=== PATIENT | female | born 1990 | race Caucasian/White ===

== ENCOUNTER 2018-03-15 15:29 | Inpatient (IN) ==
--- OUTSIDE RECORDS SUMMARY | 2018-03-15 15:50 | External Medical Summary | Continuity of Care Document ---
:1990 Author Organization [facility] Address [address] [place], [place] [id number] Phone Allergies, Adverse Reactions, Alerts Substance Reaction Severity Status No Known Drug Allergies Unknown Active Medications Medication Instructions Dosage Effective Dates Status Comments (start - stop) Blood Glucose test 1 by - Active to go with Test strips Injection route Nipro Santiago QID (fasting and 2 Test--ICD 10: hours O24.410 postprandial) Lancets,Ultra testing QID - Active to go with Thin 26 gauge Nipro Santiago Test--ICD 10: O24.410 Blood Glucose check by - Active Nipro Santiago Monitoring kit Misc.(Non-Drug; Test--ICD 10: Combo Route) route O24.410 blood sugar QID, fasting and 2 hours after each meal Plus take 1 tablet by Not Available - Active (calcium oral route every carbonate) 27 mg day iron-1 mg tablet Aspir-81 81 mg take 1 tablet by 81 MG - Active tablet,delayed ORAL route every release day Problems Condition Effective Dates (start - stop) Clinical Status Morbid (severe) obesity due to excess calories Nicotine dependence, cigarettes, uncomplicated state, incidental Body mass index (BMI) 40.0-44.9, adult Supervision of other high risk - pregnancies, second trimester Abnormal glucose complicating - 17 weeks gestation of - Polycystic ovarian syndrome Polycystic ovarian syndrome Morbid (severe) obesity due to excess calories Pure hyperglyceridemia Menorrhagia Body mass index (BMI) 40.0-44.9, adult Polycystic ovarian syndrome - Menorrhagia - Body mass index (BMI) 40.0-44.9, adult - Morbid (severe) obesity due to excess calories Nicotine dependence, cigarettes, uncomplicated Menorrhagia Female infertility associated with anovulation Galactorrhea Body mass index (BMI) 40.0-44.9, adult Morbid (severe) obesity due to excess - calories Supervision of other high risk - pregnancies, second trimester Abnormal glucose complicating - 26 weeks gestation of - Morbid (severe) obesity due to excess calories Encounter for surveillance of contraceptive pills Body mass index (BMI) 40.0-44.9, adult Nicotine dependence, cigarettes, uncomplicated Pap Smear Screening, Cervix Encounter for removal of intrauterine - contraceptive device Encounter for removal of intrauterine contraceptive device [facility] and advice on procreation Supervision of other high risk - pregnancies, first trimester Previous Low Transverse - Pap Smear Screening, Cervix - 11 weeks gestation of - Supervision of other high risk - pregnancies, first trimester Previous Low Transverse - 13 weeks gestation of - Supervision of other high risk - pregnancies, first trimester Less than 8 weeks gestation of - Supervision of other high risk - pregnancies, first trimester Previous Low Transverse - 13 weeks gestation of - Gestational diabetes mellitus in - , diet controlled Previous Low Transverse - 28 weeks gestation of - Previous Low Transverse - Maternal care for excess growth, - second tri, unsp 19 weeks gestation of - Previous Low Transverse - Obesity complicating , second - trimester 19 weeks gestation of - Previous Low Transverse - Abnormal glucose complicating - 23 weeks gestation of - Asthma Active Kidney Stones Active Procedures Procedure Date Unknown Results Test Name Date and Time Measure Units Reference Range Abnormal Flag Comments Unknown Advance Directives Directive Yes / No Effective Date File Name Unknown Encounters Encounter Practice Location Reason(s) Diagnoses Date Provider Care Team Description For Visit Members Kian [place] Gestational Apr-0 Hoskins Referring In Womens diabetes mellitus 5-201 Cathie. Provider: Vishnu HINTON, in , 8 700 Cathie Hoskins PO Box diet Medical K, 700 1522, controlledPreviou [facility], Low Transverse , [facility] Dr MAYO, [id number] weeks 120, Jorge 120, , gestation of [place], [place], GA[place], tel: [phone]. , [place]. tel: tel: [phone] Kian [place] Apr-0 Hoskins In Womens 4-201 Cathie. Vishnu HINTON, 8 700 [address], [place] [address] Michael, [facility] GAEL, 120, , [facility] [place], tel: [phone] , [place]. tel: [phone] Kian [place] Mar-2 Hoskins In Womens 3-201 Cathie. Vishnu HINTON, 8 700 [address], [place] [address] Michael, [facility] [place], 120, [id number], [facility] [place], tel: [phone] , [place]. tel: [phone] Kian [place] Morbid (severe) Mar-2 Hoskins Referring In Womens obesity due to 2-201 Cathie. Provider: Vishnu HINTON, excess 8 700 Cathie Hoskins PO Box caloriesSupervisi Medical K, 700 1522, on of other [facility] [place], risk pregnancies, , [facility] Dr MAYO, second 120, Jorge 120, , trimesterAbnormal Ge[place]any [place], glucose [place], [place], tel:+ complicating [phone]. weeks , [place]. tel: gestation of tel: [phone] Kian [place] Previous Low Mar-0 Hoskins Referring In Womens Transverse 1-201 Cathie. Provider: Health JAMAAL, C-SectionAbnormal 8 700 Cathie Hoskins PO Box glucose Medical K, 700 1522, complicating [facility] [place], [id number] weeks , [facility] Dr MYAO, gestation of 120, Jorge 120, [id number], [place], [place], [place], tel: [phone]. , [place]. tel: tel: [phone] Kian [place] Previous Low Feb-0 Hoskins Referring In Womens Transverse - Cathie. Provider: Vishnu HINTON, C-SectionObesity 8 700 Cathie Hoskins PO Box complicating Medical K, 700 1522, , second [facility], [id number] weeks , [facility] Dr MAYO, gestation of 120, Jorge 120, , [place], [place], [place], tel: [phone]. , [place]. tel: tel: [phone] Kian [place] Previous Low Feb-0 Hoskins Referring In Womens Ultrasound Transverse Cathie. Provider: Vishnu HINTON, C-SectionMaternal 8 700 Cathie Hoskins PO Box care for excess Medical K, 700 1522, growth, [facility], second tri, , [facility] Dr MAYO, unsp19 weeks 120, Jorge 120, , gestation of [place], [place], [place], tel: [phone]. , [place]. tel: tel: [phone] Kian [place] Supervision of Hoskins Referring In Womens other high risk - Cathie. Provider: Health JAMAAL, pregnancies, 8 700 Cathie Hoskins PO Box second Medical K, 700 1522, trimesterAbnormal [facility], nellie [place], [facility] Dr MAYO, complicating 120, Jorge 120, [id number], [id number] weeks [place], [place] gestation of [place], tel: [phone]. , [place]. tel: tel: [phone] Kian [place] Supervision of Dec-2 Hoskins Referring In Womens Ultrasound other high risk - Cathie. Provider: Health PA, pregnancies, 7 700 Cathie Hoskins PO Box first Medical , 700 1522, trimesterPrevious Center [facility], Low Transverse , [facility] Dr MAYO, [id number] weeks 120, Jorge 120, [id number], gestation of Geov[place], [place], [place], tel: [phone]. , [place]. tel: tel: [phone] Kian [place] Supervision of Dec-2 Hoskins Referring In Womens other high risk - Cathie. Provider: Health PA, pregnancies, 7 700 Cathie Hoskins PO Box first Medical , 152, trimesterPrevious [facility], Low Transverse , [facility] Dr MAYO, [id number] weeks 120, Jorge 120, , gestation of [place], [place], [place], tel: [phone]. , [place]. tel: tel: [phone] Kian [place] Supervision of Dec-0 Hoskins Referring In Womens other high risk Cathie. Provider: Health PA, pregnancies, 7 700 Cathie Hoskins PO Box first Medical , 700 1522, [facility], Low Transverse , [facility] Dr MAYO, C-SectionPap 120, Jorge 120, [id number], Smear Screening, [place], [id number] weeks [place] MAYO, tel: gestation of [phone]. , [place]. tel: tel: [phone] Kian [place] Supervision of Nov-0 Hoskins Referring In Womens other high risk - Cathie. Provider: Health [place], pregnancies, 7 700 Cathie Hoskins PO Box first Medical , 700 1522, trimesterLess Center [facility], than 8 weeks , [facility] Dr MAYO, gestation of 120, Jorge 120, [id number], Geov[place], [place] MAYO, tel:[phone]. , [place]. tel: tel: [phone] [facility] Morbid (severe) Oct- Hoskins Referring In Womens obesity due to 9- Cathie. Provider: Health JAMAAL, excess 7 700 Cathie Hoskins PO Box caloriesNicotine Medical , 700 152, dependence, [facility], cigarettes, , [facility] Dr MAYO, uncomplicatedPreg 120, Jorge 120, , [place], [place], [place] incidentalBody [place] MAYO, tel: mass index (BMI) [phone]. 40.0-44.9, adult , [place]. tel: tel: [phone] [facility] Morbid (severe) Bryan-2 Hoskins Referring In Womens obesity due to - Cathie. Provider: Vishnu HINTON, excess 7 700 Cathie Hoskins PO Box caloriesEncounter [facility], 700 152, for surveillance [facility], of contraceptive , [facility] Dr MAYO, pillsBody mass 120, Jorge 120, , index (BMI) [place], [place] 40.0-44.9, adult [place] MAYO, tel:[phone]. , [place]. tel: tel: [phone] [facility] Polycystic Apr-2 Hoskins Referring In Womens ovarian 6-201 Cathie. Provider: Vishnu HINTON, syndromeMorbid 700 Cathie Hoskins PO Box (severe) obesity Medical , 700 152, due to excess [facility], caloriesPure , [facility] Dr MAYO, hyperglyceridemia 120, Jorge 120, , MenorrhagiaBody [place], [place] mass index (BMI) [place] MAYO, tel: 40.0-44.9, adult [phone]. , [place]. tel: tel: [phone] [facility] Polycystic Apr-2 Hoskins Referring In Womens Ultrasound ovarian 6-201 Cathie. Provider: Vishnu HINTON, syndromeMenorrhag 7 700 Cathie Hoskins PO Box iaBody mass index Medical , 700 1522, (BMI) 40.0-44.9, [facility], adult Dr, [facility] Dr MAYO, 120, Jorge 120, , Geov[place], [facility] [place], [place], tel: [phone]. , [place]. tel: tel: [phone] Kian [place] Polycystic Apr-0 Hoskins In Womens ovarian syndrome 2-201 Cathie. Health [facility], 7 700 PO [address] Medical [address], [place], , Jorge [place], 120, [id number], [place], tel: [phone] , [place]. tel: [phone] Kian [place] Morbid (severe) Mar-3 Hoskins Referring In Womens obesity due to 0-201 Cathie. Provider: Health [place], excess 7 700 Cathie Hoskins PO Box caloriesNicotine Medical , 700 1522, dependence, [facility], , [facility] Dr MAYO, uncomplicatedMeno 120, Jorge 120, , rrhagiaFemale [place], infertility [place], [place], tel: associated with [phone]. anovulationGalact , [place]. tel: orrheaBody mass tel: [phone] index (BMI) [id number] 40.0-44.9, adult [facility] Nicotine Oct- Hoskins Referring In Womens dependence, 5-201 Cathie. Provider: Health JAMAAL, cigarettes, 6 700 Cathie Hoskins PO Box uncomplicatedPap Medical , 700 1522, Smear Screening, [facility], CervixEncounter , [facility] Dr MAYO, for removal of 120, Jorge 120, [id number], intrauterine [place], contraceptive [place], [place], tel: deviceEncounter [phone]. for removal of , [place]. tel: intrauterine tel: [phone] contraceptive [phone] deviceEncounter for oth general cnsl and advice on procreation [facility] Nov-2 Yadiel Referring In Womens Ultrasound 8-201 Roge. Provider: Health JAMAAL, [address], 791 0542, [facility] [place], [id number] [place], [id number], , [place]. [place], [address]. [place] tel: tel: tel: [phone] Family History Family Member Diagnosis Age At Onset No family history of Stroke No family history of Lung Disease No family history of Thyroid Disorder No family history of Epilepsy No family history of Pulmonary Embolism Paternal Grandmother Breast Cancer No family history of Hypertension No family history of Colon Cancer No family history of Ovarian Cancer No family history of Cardiovascular Disease Mother Diabetes No family history of Uterine Cancer Maternal Grandmother Breast Cancer No family history of Osteoporosis No family history of Kidney Disease No family history of Venous Thrombosis Immunizations Vaccine Date Status Comments Influenza, injectable, completed Source: New Immunization Record quadrivalent, preservative free, 3 yrs or older Payers Payer name Insurance type Covered democrat ID Authorization(s) [employer] [place] [employer] - [place] [id number] [employer] [place] [id number] Social History Type Description Quantity Date Captured Unknown Vital Signs Date / Height Weight BMI Pulse Blood Temperature Respiratory Body Head BMI Time: Rate Pressure Rate Surface Circumference percentile Area Unknown Chief Complaint And Reason For Visit Unknown Chief Complaint And Reason For Visit Reason For Referral Reason For Referral Unknown Plan Of Care Date Type Action Status Goal Tobacco cessation counseling completed Goal Tobacco cessation counseling completed Goal Lifestyle education regarding completed diet Goal Lifestyle education regarding completed diet Goal Lifestyle education regarding completed diet Goal Tobacco cessation counseling completed Goal Tobacco cessation counseling completed Appointment Gwendolyn Woods BOOKED Appointment Gwendolyn Woods BOOKED Appointment Gwendolyn Woods [facility]PT[facility] BOOKED Future Order: Radiology Order Transvaginal Pelvic Ultrasound Ordered ([id number]) Future Order: Lab Order Pap Smear With HPV Reflex If Ordered ASCUS ([id number]), Collected on: Future Order: Radiology Order Nuchal Translucency ([id number]) Ordered Future Order: Radiology Order Complete OB Ultrasound > 14 Ordered Weeks ([id number]) Date Type Problem Goal Intervention Status Start Date Unknown. History Of Present Illness Encounter Date Complaint History Of Present Illness This patient has no known history of present illness Functional Status Encounter Date Functional Assessment Cognitive Assessment Unknown Medications Administered Medication Instructions Dosage Effective Dates (start - stop) Status Comments Drug Treatment Unknown Instructions Date Instruction Additional Information anticipated course of care nutrition and weight gain counseling, special diet toxoplasmosis precautions (cats / raw meat) sexual activity exercise indications for ultrasound influenza vaccine environmental / work hazards travel tobacco (ask, advise, assess, assist and arrange) use of any medications (including supplements, vitamins, herbs, OTC drugs) smoking counseling domestic violence seat belt use childbirth classes / hospital facilities hospital registration genetic testing HIV and other routine tests risk factors identified by history Lifestyle education regarding diet Related to Body mass index 40.0-44.9 Giving encouragement to exercise Related to Body mass index 40.0-44.9 Giving encouragement to exercise Related to Body mass index 40.0-44.9 Lifestyle education regarding diet Related to Body mass index 40.0-44.9 Lifestyle education regarding diet Related to Body mass index 40.0-44.9 Giving encouragement to exercise Related to Body mass index 40.0-44.9
--- OUTSIDE RECORDS SUMMARY | 2018-03-15 15:50 | External Medical Summary | Continuity of Care Document ---
:1990 Author Organization [facility] Address [address] [place], [place] [id number] Phone Allergies, Adverse Reactions, Alerts Substance Reaction Severity Status No Known Drug Allergies Unknown Active Medications Medication Instructions Dosage Effective Dates Status Comments (start - stop) Blood Glucose test 1 by - Active to go with Test strips Injection route Nipro Santiago QID (fasting and 2 Test--ICD 10: hours O24.410 postprandial) Lancets,Ultra testing QID - Active to go with Thin 26 gauge Nipro Santigao Test--ICD 10: O24.410 Blood Glucose check by [...] removal of intrauterine contraceptive device Encounter for [facility] general cnsl and advice on procreation Supervision [...] Supervision of other high risk - pregnancies, third trimester Gestational diabetes mellitus in - , diet controlled Previous Low Transverse - 30 weeks gestation of - Gestational diabetes mellitus in - , diet controlled Previous Low Transverse - 28 weeks gestation of - Gestational diabetes mellitus in - , diet controlled Previous Low Transverse - Obesity complicating , third - trimester 30 weeks gestation of - Previous Low Transverse [...] Team Description For Visit Members Kian [place] Supervision of Apr-1 Hoskins Referring In Womens other high risk 8- Cathie. Provider: Vishnu HINTON, pregnancies, 8 700 Cathie Hoskins [address] Box [facility] Medical , 700 1522, [facility] , [facility] Dr MAYO, mellitus in 120, Jorge 120, , , diet Geovany [place], [place] controlledPreviou GAEL, GAEL, tel: s Low Transverse [phone]. C-Dcnoiem07 weeks , [place]. tel: gestation of tel: [phone] Kian [place] Gestational Apr-1 Hoskins Referring In Womens Ultrasound diabetes mellitus 8- Cathie. Provider: Vishnu HINTON, in , 8 700 Cathie Hoskins PO Box [facility] , 700 1522, [facility], [facility] , [facility] Dr MAYO, C-SectionObesity 120, Jorge 120, , complicating Geovany [place], [place] , third GAEL MAYO, tel:2 weeks [phone]. gestation of , [place]. tel: tel: [phone] Kian [place] Gestational Apr-0 Hoskins Referring In Womens diabetes mellitus 5-201 Cathie. Provider: Vishnu HINTON, in , 8 700 Cathie Hoskins PO Box [employer], 700 1522, [facility], s Low Transverse , [facility] Dr MAYO, C-Egmzgru11 weeks 120, Jorge 120, , gestation of Geovany [place], [place], [place], tel: [phone]. , [place]. tel: tel: [phone] [facility] Apr-0 Hoskins In Womens 4-201 Cathie. Vishnu HINTON, 8 700 [address] Medical [address], [place], , [facility], 120, , [place], tel: [phone] , [place]. tel: [phone] [facility] Morbid (severe) Mar-2 Hoskins Referring In Womens obesity due to 2-201 Cathie. Provider: Vishnu HINTON, excess 8 700 Cathie Hoskins PO Box [facility] Medical K, 700 1522, on of other [facility], risk pregnancies, , [facility] Dr MAYO, second 120, Jorge 120, , trimesterAbnormal [place], [place] glucose [place], [place], tel: complicating [phone]. [id number] weeks , [place]. tel: gestation of tel: [phone] [facility] Previous Low Mar-0 Hoskins Referring In Womens Transverse 1-201 Cathie. Provider: Vishnu HINTON, C-SectionAbnormal 8 700 Cathie Hoskins PO Box glucose Medical , 700 1522, complicating [facility] [place], [id number] weeks , [facility] Dr MAYO, gestation of 120, Jorge 120, , [place], [place], tel: [phone]. , [place]. tel: tel: [phone] [facility] Previous Low Feb-0 Hoskins Referring In Womens Transverse 1-201 Cathie. Provider: Vishnu HINTON, C-SectionObesity 8 700 Cathie Hoskins PO Box complicating Medical , 700 1522, , second Center [facility], [email or web address] weeks , [facility] Dr MAYO, gestation of 120, Jorge 120, [id number], Geovany [place], [place] GAEL GAEL, tel: [phone]. , [place]. tel: tel: [phone] Kian [place] Previous Low Feb-0 Hoskins Referring In Womens Ultrasound Transverse - Cathie. Provider: Vishnu HINTON, C-SectionMaternal 8 700 Cathie Hoskins PO Box care for excess Medical K, 700 1522, growth, [facility] tri, , [facility] Dr MAYO, unsp19 weeks 120, Jorge 120, [id number], gestation of Geovany [place], [place] GAEL MAYO, tel: [phone]. , [place]. tel: tel: [phone] Kian [place] Supervision of Hoskins Referring In Womens other high risk 8- Cathie. Provider: Health JAMAAL, pregnancies, 8 700 Cathie Hoskins PO Box second Medical , 700 1522, trimesterAbnormal [facility], glucose Dr, [facility] Dr MAYO, complicating 120, Jorge 120, [id number], [id number] weeks Geovany [place], [place] gestation of GAEL GAEL, tel: [phone]. , [place]. tel: tel: [phone] Kian [place] Supervision of Sep-2 Hoskins Referring In Womens Ultrasound other high risk - Cathie. Provider: Health JAMAAL, pregnancies, 7 700 Cathie Hoskins PO Box first Medical K, 700 1522, trimesterPrevious [facility], Low Transverse Dr, [facility] Dr MAYO, C-Ihfzlbj46 weeks 120, Jorge 120, [id number], gestation of Geovany [place], [place] MAYO, tel: [phone]. , [place]. tel: tel: [phone] Kian [place] Supervision of Sep-2 Hoskins Referring In Womens other high risk -201 Cathie. Provider: Health JAMAAL, pregnancies, 7 700 Cathie Hoskins PO Box first Medical K, 700 1522, [facility]Previous [facility], Low Transverse , [facility] Dr MAYO, C-Trqbnar41 weeks 120, Jorge 120, , gestation of Geovany [place], GAEL, GAEL, tel:[phone]. , [place]. tel: tel: [phone] Kian [place] Supervision of Dec-0 Hoskins Referring In Womens other high risk Cathie. Provider: Health PA, pregnancies, 7 700 Cathie Hoskins PO Box first [facility], 700 152, trimesterPrevious [facility] [place], Low Transverse , [facility] Dr MAYO, C-SectionPap 120, Jorge 120, , Smear Screening, Geovany [place], Tctngn76 weeks GAEL MAYO, tel: gestation of [phone]. , [place]. tel: tel: [phone] Kian [place] Supervision of Nov-0 Hoskins Referring In Womens other high risk Cathie. Provider: Health PA, pregnancies, 7 700 Cathie Hoskins PO Box first Medical , 700 1522, trimesterLess [facility] [place], than 8 weeks , [facility] Dr MAYO, gestation of 120, Jorge 120, , Geovany [place], GAEL MAYO, tel: [phone]. , [place]. tel: tel: [phone] Kian [place] Morbid (severe) Jul- Hoskins Referring In Womens obesity due to Cathie. Provider: Health PA, excess 7 700 Cathie Hoskins PO Box caloriesNicotine Medical , 700 1522, dependence, [facility] [place], cigarettes, , [facility] Dr MAYO, uncomplicatedPreg 120, Jorge 120, , nant state, Geovany [place], incidentalBody GAEL MAYO, tel: mass index (BMI) [phone]. 40.0-44.9, adult , [place]. tel: tel: [phone] Kian [place] Morbid (severe) Bryan-2 Hoskins Referring In Womens obesity due to 6- Cathie. Provider: Health JAMAAL, excess 7 700 Cathie Hoskins PO Box caloriesEncounter [facility], 700 1521, for surveillance [facility] [place], of contraceptive , [facility] Dr MAYO, pillsBody mass 120, Jorge 120, [id number], index (BMI) [place], [place] 40.0-44.9, adult [place], [place], tel:+ [phone]. , [place]. tel: tel: [phone] [facility] Polycystic Apr-2 Hoskins Referring In Womens ovarian 6-201 Cathie. Provider: Health JAMAAL, syndromeMorbid 7 700 Cathie Hoskins PO Box (severe) obesity [facility], 700 152, due to excess [facility] Michael caloriesPure , [facility] Dr MAYO, hyperglyceridemia 120, Jorge 120, , MenorrhagiaBody Geovany [place], [place] mass index (BMI) GAEL, GAEL, tel: 40.0-44.9, adult [phone]. , [place]. tel: tel: [phone] Kian [place] Polycystic Apr-2 Hoskins Referring In Womens Ultrasound ovarian 6- Cathie. Provider: Vishnu HINTON, syndromeMenorrhag 7 700 Cathie Hoskins PO Box iaBody mass index [facility], 700 152, (BMI) 40.0-44.9, [place] Addy Rodriguez, adult , [facility] Dr MAYO, 120, Jorge 120, , [place], [place], tel: [phone]. , [place]. tel: tel: [phone] Kian [place] Polycystic Apr-0 Hoskins In Womens ovarian syndrome 2-201 Cathie. Health JAMAAL, 7 700 PO [address] Medical [address], [place] Dr Michael, [place], 120, [id number], [place], [place], tel:[phone] , [place]. tel: [phone] Kian [place] Morbid (severe) Mar-3 Hoskins Referring In Womens obesity due to 0-201 Cathie. Provider: Health PA, excess 7 700 Cathie Hoskins PO Box caloriesNicotine Medical K, 700 1522, dependence, [facility] [address] Dr, [facility] Dr MAYO, uncomplicatedMeno 120, Jorge 120, [id number], rrhagiaFemale Geovany [place], infertility [place], [place], tel: associated with [phone]. anovulationGalact , [place]. tel: orrheaBody mass tel: [phone] index (BMI) [id number] 40.0-44.9, adult [facility] Nicotine Oct- Hoskins Referring In Womens dependence, 5-201 Cathie. Provider: Vishnu HINTON, cigarettes, 6 700 Cathie Hoskins PO Box uncomplicatedPap Medical K, 700 1522, Smear Screening, [facility] Michael CervixEnctigre [place], [facility] Dr MAYO, for removal of 120, Jorge 120, [id number], intrauterine Geovany [place], contraceptive [place], [place], tel: deviceEncounter [phone]. for removal of , [place]. tel: intrauterine tel: [phone] contraceptive [phone] deviceEncounter for oth general cnsl and advice on procreation [facility] Referring In Womens Ultrasound 8-201 Roge. Provider: Health JAMAAL, [address] [place], 720 1522, [place], [place], [id number] Geovany, [id number], , . [place], [address]. [place] tel: tel: tel: [phone] Family History Family Member Diagnosis Age At [...] Authorization(s) [employer] - Medicaid [place] [id number] [employer] - Medicaid [place] [id number] Social History Type Description Quantity Date Captured [...] Appointment Gwendolyn Woods BOOKED Appointment Gwendolyn Woods [facility] [place], PPTL BOOKED Future Order: Radiology Order Transvaginal Pelvic Ultrasound Ordered ([id number]) Future Order: Lab Order Pap Smear With HPV Reflex If Ordered ASCUS ([id number]), Collected on: Future Order: Radiology Order Nuchal Translucency ([id number]) Ordered Future Order: Radiology Order Ultrasound OB Follow-up ([id number]) Ordered Future Order: Radiology Order Complete OB Ultrasound > 14 Ordered Weeks ([id number]) Date Type Problem Goal Intervention Status Start [...]
--- OUTSIDE RECORDS SUMMARY | 2018-03-15 15:51 | External Medical Summary | Continuity of Care Document ---
:1990 Author Organization [facility] Address [address] [place], [place] [id number] Phone Allergies, Adverse Reactions, Alerts Substance Reaction [...] Effective Dates (start - stop) Clinical Status Gestational diabetes mellitus in - , diet controlled Previous Low Transverse - Obesity complicating , third - trimester 30 weeks gestation of - Morbid (severe) obesity [...] removal of intrauterine contraceptive device En[facility] for [facility] general cnsl and advice on procreation Supervision [...] Active Kidney Stones Active Procedures Procedure Date Ultrasnd preg uterus, flwup/repeat Results Test Name Date and Time Measure Units Reference Range Abnormal Flag Comments Unknown Advance Directives Directive Yes / No Effective Date File Name Unknown Encounters Encounter Practice Location Reason(s) Diagnoses Date Provider Care Team Description For Visit Members Kian [place] Supervision of Jan- Hoskins Referring In Womens other high risk 8 Cathie. Provider: Vishnu HINTON, pregnancies, 8 700 Cathie Hoskins PO Box [facility] [place], 700 1522, trimesterGestatio [facility] diabetes , [facility] Dr MAYO, mellitus in 120, Jorge 120, , , diet Geovany [place], [place] controlledPreviou [place] MAYO, tel: s Low Transverse [phone]. C-Dflanrv10 weeks , [place]. tel: gestation of tel: [phone] Kian [place] Gestational Apr-1 Hoskins Referring In Womens Ultrasound diabetes mellitus 8- Cathie. Provider: Vishnu HINTON, in , 8 700 Cathie Hoskins PO Box [employer] [facility], 700 1522, controlledPreviou [facility], Low Transverse , [facility] Dr MAYO, C-SectionObesity 120, Jorge 120, [id number], complicating Geovany [place], [place] , third GAEL MAYO, tel: mllllbdac27 weeks [phone]. gestation of , [place]. tel: tel: [phone] Kian [place] Gestational Apr-0 Hoskins Referring In Womens diabetes mellitus 5-201 Cathie. Provider: Vishnu HINTON, in , 8 700 Cathie Hoskins PO Box [employer], 700 1522, controlledPreviou [facility], s Low Transverse , [facility] Dr MAYO, C-Bjdlevs64 weeks 120, Jorge 120, , gestation of [place]ov[place], [place], tel: [phone]. , [place]. tel: tel: [phone] [facility] Apr-0 Hoskins In Womens 4-201 Cathie. Vishnu HINTON, 8 700 PO [address] Medical [address], [place], , [facility] [place], 120, , [place], [place], tel: [phone] , [place]. tel: [phone] [facility] Morbid (severe) Mar-2 Hoskins Referring In Womens obesity due to 2-201 Cathie. Provider: Vishnu HINTON, excess 8 700 Cathie Hoskins PO Box caloriesSupervisi Medical , 700 1522, on of other [facility], risk pregnancies, , [facility] Dr MAYO, second 120, Jorge 120, , trimesterAbnormal Geovany [place], [place] glucose GAEL, GAEL, tel: complicating [phone]. [id number] weeks , [place]. tel: gestation of tel: [phone] [facility] Previous Low Mar-0 Hoskins Referring In Womens Transverse 1-201 Cathie. Provider: Vishnu HINTON, C-SectionAbnormal 8 700 Cathie Hoskins PO Box glucose Medical , 700 1522, complicating [facility], [id number] weeks , [facility] Dr MAYO, gestation of 120, Jorge 120, , [place], [place], [place], tel: [phone]. , [place]. tel: tel: [phone] [facility] Previous Low Feb-0 Hoskins Referring In Womens Transverse 1-201 Cathie. Provider: Vishnu HINTON, C-SectionObesity 8 700 Cathie Hoskins PO Box complicating Medical , 700 1522, , second [facility], [email or web address] weeks , [facility] Dr MAYO, gestation of 120, Jorge 120, [id number], Geovany [place], [place] GAEL MAYO, tel: [phone]. , [place]. tel: tel: [phone] Kian [place] Previous Low Feb-0 Hoskins Referring In Womens Ultrasound Transverse - Cathie. Provider: Health JAMAAL, C-SectionMaternal 8 700 Cathie Hoskins PO Box care for excess Medical K, 700 1522, growth, [facility], second tri, , [facility] Center Dr MAYO, unsp19 weeks 120, Jorge 120, [id number], gestation of Geovany [place], [place] GAEL MAYO, tel: [phone]. , [place]. tel: tel: [phone] Kian [place] Supervision of Hoskins Referring In Womens other high risk - Cathie. Provider: Health PA, pregnancies, 8 700 Cathie Hoskins PO Box second Medical K, 700 1522, trimesterAbnormal [facility], glucose Dr, [facility] Dr MAYO, complicating 120, Jorge 120, [id number], [id number] weeks Geovany [place], [place] gestation of GAEL MAYO, tel: [phone]. , [place]. tel: tel: [phone] Kian [place] Supervision of Sep-2 Hoskins Referring In Womens Ultrasound other high risk - Cathie. Provider: Health JAMAAL, pregnancies, 7 700 Cathie Hoskins PO Box first Medical K, 700 1522, trimesterPrevious [facility], Low Transverse Dr, [facility] Center Dr MAYO, C-Yvpwxfi78 weeks 120, Jorge 120, [id number], gestation of Geovany [place], [place] GAEL MAYO, tel: [phone]. , [place]. tel: tel: [phone] Kian [place] Supervision of Dec-2 Hoskins Referring In Womens other high risk -201 Cathie. Provider: Health JAMAAL, pregnancies, 7 700 Cathie Hoskins PO Box first Medical , 700 1522, trimesterPrevious [facility], Low Transverse , [facility] Dr MAYO, C-Gthezpa52 weeks 120, Jorge 120, , gestation of [place], GAEL, GAEL, tel: [phone]. , [place]. tel: tel: [phone] Kian [place] Supervision of Dec- Hoskins Referring In Womens other high risk Cathie. Provider: Health PA, pregnancies, 7 700 Cathie Hoskins PO Box first Medical , 700 1522, trimesterPrevious [facility], Low Transverse , [facility] Dr MAYO, C-SectionPap 120, Jorge 120, , Smear Screening, Geovany [place], Naeoqg31 weeks GAEL MAYO, tel: gestation of [phone]. , [place]. tel: tel: [phone] Kian [place] Supervision of Nov-0 Hoskins Referring In Womens other high risk Cathie. Provider: Health PA, pregnancies, 7 700 Cathie Hoskins PO Box first Medical , 700 1522, trimesterLess [facility], than [address], [facility] Dr MAYO, gestation of 120, Jorge 120, , Geovany [place], GAEL MAYO, tel: [phone]. , [place]. tel: tel: [phone] Kian [place] Morbid (severe) Hoskins Referring In Womens obesity due to Cathie. Provider: Health PA, excess 7 700 Cathie Hoskins PO Box caloriesNicotine Medical , 700 1522, dependence, [place] Addy Rodriguez, cigarettes, Dr, [facility] Center Dr MAYO, uncomplicatedPreg 120, Jorge 120, , [place] state, Geovany [place], incidentalBody GAEL MAYO, tel:2 mass index (BMI) [id number]. 40.0-44.9, adult , [place]. tel: tel: [phone] [facility] Morbid (severe) Bryan-2 Hoskins Referring In Womens obesity due to 6-201 Cathie. Provider: Health JAMAAL, excess 7 700 Cathie Hoskins PO Box [facility], 700 152, for surveillance [facility], of contraceptive , [facility] Dr MAYO, pillsBody mass 120, Jorge 120, [id number], index (BMI) Geovany [place], [place] 40.0-44.9, adult GAEL MAYO, tel:[phone]. , [place]. tel: tel: [phone] [facility] Polycystic Apr-2 Hoskins Referring In Womens ovarian 6-201 Cathie. Provider: Vishnu HINTON, syndromeMorbid 7 700 Cathie Hoskins PO Box (severe) obesity Medical , 700 152, due to excess [facility], caloriesPure , [facility] Dr MAYO, hyperglyceridemia 120, Jorge 120, , MenorrhagiaBody Geovany [place], [place] mass index (BMI) GAEL, GAEL, tel: 40.0-44.9, adult [phone]. , [place]. tel: tel: [phone] [facility] Polycystic Apr-2 Hoskins Referring In Womens Ultrasound ovarian 6-201 Cathie. Provider: Vishnu HINTON, syndromeMenorrhag 7 700 Cathie Hoskins PO Box iaBody mass index [facility], 700 152, (BMI) 40.0-44.9, [facility], adult , [facility] Dr MAYO, 120, Jorge 120, [id number], Geovany [place], [place], [place], tel: [phone]. , [place]. tel: tel: [phone] [facility] Polycystic Apr-0 Hoskins In Womens ovarian syndrome 2-201 Cathie. Health JAMAAL, 7 700 PO [address] Medical [address], [place], , Jorge MAYO, 120, [id number], [place], [place], tel:[phone] , [place]. tel: [phone] Kian [place] Morbid (severe) Mar-3 Hoskins Referring In Womens obesity due to 0-201 Cathie. Provider: Health PA, excess 7 700 Cathie Hoskins PO Box caloriesNicotine Medical K, 700 1522, dependence, [facility], cigarettes, , [facility] Dr MAYO, uncomplicatedMeno 120, Jorge 120, [id number], rrhagiaFemale Geovany [place], infertility [place], [place], tel: associated with [phone]. anovulationGalact , [place]. tel: orrheaBody mass tel: [phone] index (BMI) [id number] 40.0-44.9, adult [facility] Nicotine Patrick-2 Hoskins Referring In Womens dependence, 5-201 Cathie. Provider: Health JAMAAL, cigarettes, 6 700 Cathie Hoskins PO Box uncomplicatedPap Medical K, 700 1522, Smear Screening, [facility], CervixEncountcedric [place], [facility] Dr MAYO, for removal of 120, Jorge 120, [id number], intrauterine Geovany [place], contraceptive [place], [place], tel: deviceEncounter [phone]. for removal of , [place]. tel: intrauterine tel: [phone] contraceptive [phone] deviceEncounter for oth general cnsl and advice on procreation [facility] Nov- Desdemona Referring In Womens Ultrasound 8-201 Roge. Provider: Health JAMAAL, [address] [place], [address] 1522, [place], [place] , GAEL, [id number] Geovany, [id number], , [place], [address]. [place] tel: tel: tel: [phone] Family History Family Member Diagnosis Age At [...] older Payers Payer name Insurance type Covered alliance party ID Authorization(s) [employer] - [place] [id number] [employer] - Medicaid [place] [id number] Social History Type Description Quantity Date Captured [...] Tobacco cessation counseling completed Appointment Gwendolyn Woods [facility] C/S, PPTL BOOKED Future Order: Radiology Order Ultrasound OB Follow-up ([id number]) Ordered Future Order: Radiology Order Transvaginal Pelvic Ultrasound Ordered ([id number]) Future Order: Lab Order Pap Smear With HPV Reflex If Ordered ASCUS ([id number]), Collected on: Future Order: Radiology Order Nuchal Translucency ([id number]) Ordered Future Order: Radiology Order Complete OB Ultrasound > 14 Ordered Weeks ([id number]) Date Type Problem Goal Intervention Status Start [...]
--- OUTSIDE RECORDS SUMMARY | 2018-03-15 15:51 | External Medical Summary | Continuity of Care Document ---
:1990 Author Organization [facility] [facility] Address [address] [place], [place] [id number] Phone Allergies, Adverse Reactions, Alerts Substance Reaction [...] removal of intrauterine contraceptive device Encounter for [facility] general cnsl and advice [...] Box diet Medical K, 700 1522, controlledPreviou [facility] emerald Rodriguez Transverse , [facility] Dr MAYO, C-Miejxtb91 weeks 120, Jorge 120, , gestation of Geovany Leopold, GAEL, GAEL, tel:[phone]. , [place]. tel: tel: [phone] Kian [place] Apr-0 Hoskins In Womens 4-201 Cathie. Vishnu HINTON, 8 700 PO [address] Medical [address], [address] Michael, [facility] GAEL, 120, , [facility] [place], tel: [phone] , [place]. tel: [phone] Kian [place] Mar-2 Hoskins Referring In Womens 6-201 Cathie. Provider: Vishnu HINTON, 8 700 Cathie Hoskins PO Box Medical K, 700 1522, [place] [address], [facility] Dr MAYO, 120, Jorge 120, , [place], [place], [place], tel: [phone]. , [place]. tel: tel: [phone] Kian [place] Morbid (severe) Mar-2 Hoskins Referring In Womens obesity due to 2-201 Cathie. Provider: Vishnu HINTON, excess 8 700 Cathie Hoskins PO Box caloriesSupervisi Medical K, 700 1522, on of other [facility] Michael risk dariel, , [facility] Dr MAYO, second 120, Jorge 120, , trimesterAbnormal Geovany [place], glucose GAEL, GAEL, tel: complicating [phone]. weeks , [place]. tel: gestation of tel:[phone] Associates Geovany Previous Low Mar-0 Hoskins Referring In Womens Transverse Cathie. Provider: Health JAMAAL, C-SectionAbnormal 8 700 Cathie Hoskins PO Box glucose Medical K, 700 1522, complicating [facility], [id number] weeks , [facility] Dr MAYO, gestation of 120, Jorge 120, [id number], [place], [place] GAEL MAYO, tel: [phone]. , [place]. tel: tel: [phone] Associates Geovany Previous Low Feb-0 Hoskins Referring In Womens Transverse - Cathie. Provider: Health JAMAAL, C-SectionObesity 8 700 Cathie Hoskins PO Box complicating Medical K, 700 1522, , [facility], [id number] weeks , [facility] Dr MAYO, gestation of 120, Jorge 120, , [place], [place] GAEL MAYO, tel: [phone]. , [place]. tel: tel: [phone] Kian [place] Previous Low Feb-0 Hoskins Referring In Womens Ultrasound Transverse Cathie. Provider: Vishnu HINTON, C-SectionMaternal 8 700 Cathie Hoskins PO Box care for excess Medical K, 700 1522, growth, [facility], [facility] tri, , [facility] Dr MAYO, unsp19 weeks 120, Jorge 120, [id number], gestation of Geovany [place], [place] GAEL, GAEL, tel: [phone]. , [place]. tel: tel: [phone] Kian [place] Supervision of Hoskins Referring In Womens other high risk Cathie. Provider: Health PA, pregnancies, 8 700 Cathie Hoskins PO Box second Medical K, 700 1522, trimesterAbnormal [facility], nellie [place], [facility] Dr MAYO, complicating 120, Jorge 120, [id number], weeks Ge[place]any [place], [place] gestation of GAEL MAYO, tel: [phone]. , [place]. tel: tel: [phone] Kian [place] Supervision of Dec-2 Hoskins Referring In Womens Ultrasound other high risk - Cathie. Provider: Health JAMAAL, pregnancies, 7 700 Cathie Hoskins PO Box first Medical K, 700 1522, trimesterPrevious [facility] [place], Low Transverse , [facility] Dr MAYO, C-Ejeexww75 weeks 120, Jorge 120, [id number], gestation of [place], [place] GAEL MAYO, tel: [phone]. , [place]. tel: tel: [phone] Kian [place] Supervision of Dec-2 Hoskins Referring In Womens other high risk - Cathie. Provider: Health JAMAAL, pregnancies, 7 700 Cathie Hoskins PO Box first Medical , 700 1522, trimesterPrevious [facility] [place], Low Transverse , [facility] Dr MAYO, C-Zvzxvzd71 weeks 120, Jorge 120, [id number], gestation of [place], [place] GAEL MAYO, tel: [phone]. , [place]. tel: tel: [phone] Kian [place] Supervision of Dec-0 Hoskins Referring In Womens other high risk - Cathie. Provider: Health PA, pregnancies, 7 700 Cathie Hoskins PO Box first Medical , 700 1522, trimesterPrevious [place] Addy Rodriguez, Low Transverse , [facility] Dr MAYO, C-SectionPap 120, Jorge 120, [id number], Smear Screening, [place], [place] Qlkslb77 weeks GAEL GAEL, tel: gestation of [phone]. , [place]. tel: tel: [phone] Kian [place] Supervision of Nov-0 Hoskins Referring In Womens other high risk - Cathie. Provider: Health JAMAAL, pregnancies, 7 700 Cathie Hoskins PO Box first Medical K, 700 1522, trimesterLess [facility] [place], than 8 weeks , [facility] Dr MAYO, gestation of 120, Jorge 120, , Geovany [place], [facility], [place], tel:[phone]. , [place]. tel: tel: [phone] Kian [place] Morbid (severe) Oct-1 Hoskins Referring In Womens obesity due to 9 Cathie. Provider: Health PA, excess 7 700 Cathie Hoskins PO Box caloriesNicotine Medical , 700 152, dependence, [facility] [place], cigarettes, Dr, [facility] Dr MAYO, uncomplicatedPreg 120, Jorge 120, , [place], [place]ov[place], [place] incidentalBody GAEL MAYO, tel: mass index (BMI) [id number]. 40.0-44.9, adult , [place]. tel: tel: [phone] Kian [place] Morbid (severe) Bryan-2 Hoskins Referring In Womens obesity due to Cathie. Provider: Health PA, excess 7 700 Cathie Hoskins PO Box caloriesEncounter Medical , 700 1522, for surveillance [facility] [place], of contraceptive , [facility] Dr MAYO, pillsBody mass 120, Jorge 120, , index (BMI) Ge[place], [place] 40.0-44.9, adult GAEL MAYO, tel:[phone]. , [place]. tel: tel: [phone] Kian [place] Polycystic Apr-2 Hoskins Referring In Womens ovarian 6-201 Cathie. Provider: Health PA, syndromeMorbid 7 700 Cathie Hoskins PO Box (severe) obesity Medical , 700 1522, due to excess [facility] Michael caloriesPure , [facility] Dr MAYO, hyperglyceridemia 120, Jorge 120, , MenorrhagiaBody Geovany [place], [place] mass index (BMI) GAEL MAYO, tel: 40.0-44.9, adult [phone]. , [place]. tel: tel: [phone] Kian [place] Polycystic Apr-2 Hoskins Referring In Womens Ultrasound ovarian 6-201 Cathie. Provider: Health PA, syndromeMenorrhag 7 700 Cathie Hoskins PO Box iaBody mass index Medical K, 700 1522, (BMI) 40.0-44.9, [place] Addy Rodriguez, adult Dr, [facility] Dr MAYO, 120, Jorge 120, , Geovany [place], [facility], [place], tel: [phone]. , [place]. tel: tel: [phone] Kian [place] Polycystic Apr-0 Hoskins In Womens ovarian syndrome 2-201 Cathie. Health PA, 7 700 PO Box Medical [address], [address] Michael, [facility] GAEL, 120, , [place], [place], tel:[phone] , [place]. tel: [phone] Kian [place] Morbid (severe) Mar-3 Hoskins Referring In Womens obesity due to 0-201 Cathie. Provider: Health PA, excess 7 700 Cathie Hoskins PO Box caloriesNicotine Medical , 700 1522, dependence, [facility] [address], [facility] Dr MAYO, uncomplicatedMeno 120, Jorge 120, , rrhagiaFemale Geovany [place], [place], tel: associated with [phone]. anovulationGalact , [place]. tel: orrheaBody mass tel: [phone] index (BMI) [id number] 40.0-44.9, adult Associates Geovany Nicotine Patrick-2 Hoskins Referring In Womens dependence, 5-201 Cathie. Provider: Health JAMAAL, cigarettes, 6 700 Cathie Hoskins PO Box uncomplicatedPap Medical K, 700 1522, Smear Screening, [facility] Michael CervixEncountcedric [place], [facility] Dr MAYO, for removal of 120, Jorge 120, [id number], intrauterine [place], contraceptive [place], tel: deviceEncounter [phone]. for removal of , [place]. tel: intrauterine tel: [phone] contraceptive [phone] deviceEncounter for ot general cnsl and advice on procreation [facility] [place] Referring In Womens Ultrasound 8-201 Roge. Provider: Vishnu HINTON, [address], 720 1445, [facility] GAEL [place], [id number] [place], [id number], , [place], [address]. [place] tel: tel: tel: [phone] Family History Family Member Diagnosis Age At [...] older Payers Payer name Insurance type Covered republican ID Authorization(s) [employer] - Medicaid [place] [id number] [employer] - Medicaid [place] [id number] Social History Type Description Quantity Date Captured Alcohol Use Details No Caffeine Use Details Unknown Tobacco Use Status Smoking Status Current every day smoker Vital Signs Date / Height Weight BMI Pulse Blood Temperature Respiratory Body Head BMI Time: Rate Pressure Rate Surface Circumference percentile Area 2 5:08 kg/m PM eter (2) Chief Complaint And Reason For Visit Unknown [...] Appointment Gwendolyn Woods BOOKED Appointment Gwendolyn Woods [facility] R C/S, PPTL BOOKED Future Order: Radiology Order Transvaginal Pelvic Ultrasound Ordered ([id number]) Future Order: Lab Order Pap Smear With HPV Reflex If Ordered ASCUS ([id number]), Collected on: Future Order: Radiology Order Nuchal Translucency ([id number]) Ordered Future Order: Radiology Order Complete OB Ultrasound > 14 Ordered Weeks ([id number]) Date Type Problem Goal Intervention Status Start [...]
--- OUTSIDE RECORDS SUMMARY | 2018-03-15 15:52 | External Medical Summary | Continuity of Care Document ---
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 Provider: Vishnu HINTON, pregnancies, 8 700 Cathie Hoskins PO Box [facility] Medical [employer], 700 1522, trimesterGestatio [facility] diabetes , [facility] [address] MAYO, mellitus in 120, Jorge 120, [id number], , diet Geovany [place], [facility]PreviNew [facility] CenterGAEL, tel: s Low Transverse [phone]. C-Exskpdd05 weeks , [place]. tel: gestation of tel: [phone] Kian [place]a Gestational Jan-1 Hoskins Referring In Womens Ultrasound diabetes mellitus 8-201 Cathie. Provider: Vishnu HINTON, in , 8 700 Cathie Hoskins PO Box [employer] [facility] [employer], 700 1522, [facility], Low Transverse , [facility] Dr MAYO, C-SectionObesity 120, Jorge 120, [id number], complicating Geovany [place], [place] , third GAEL MAYO, tel: [id number] weeks [phone]. gestation of , [place]. tel: tel: [phone] Kian [place] Gestational Apr-0 Hoskins Referring In Womens diabetes mellitus 5-201 Cathie. Provider: Vishnu HINTON, in , 8 700 Cathie Hoskins PO Box [employer] [facility] [employer], 700 1522, [facility] [place], s Low Transverse , [facility] Dr MAYO, C-Akxamey20 weeks 120, Jorge 120, , gestation of [place], [place], tel: [phone]. , [place]. tel: tel: [phone] Associates Geovany Apr-0 Hoskins In Womens 4-201 Cathie. Vishnu HINTON, 8 700 PO Box Medical [address]22, Center [place], , [facility] [place], 120, , [place], [place], tel: [phone] , [place]. tel: [phone] Associates Geovany Morbid (severe) Mar-2 Hoskins Referring In Womens obesity due to 2-201 Cathie. Provider: Vishnu HINTON, excess 8 700 Cathie Hoskins PO Box caloriesSupervisi Medical K, 700 1522, on of other [facility], risk pregnancies, , [facility] Dr MAYO, second 120, Jorge 120, , trimesterAbnormal Geovany [place], [place] glucose GAEL, GAEL, tel: complicating [phone]. [id number] weeks , [place]. tel: gestation of tel: [phone] Associates Geovany Previous Low Mar-0 Hsokins Referring In Womens Transverse 1-201 Cathie. Provider: Vishnu HINTON, C-SectionAbnormal 8 700 Cathie Hoskins PO Box glucose Medical K, 700 1522, complicating [facility] [place], [id number] weeks , [facility] [address] MAYO, gestation of 120, Jorge 120, , [place], [place], tel: [phone]. , [place]. tel: tel: [phone] Associates Geovany Previous Low Feb-0 Hoskins Referring In Womens Transverse 1-201 Cathie. Provider: Vishnu HINTON, C-SectionObesity 8 700 Cathie Hoskins PO Box complicating Medical , 700 1522, , [facility] [id number] weeks , [facility] [address] MAYO, gestation of 120, Jorge 120, [id number], Geovany [place], [place] GAEL MAYO, tel: [phone]. , [place]. tel: tel: [phone] Kian [place] Previous Low Feb-0 Hoskins Referring In Womens Ultrasound Transverse - Cathie. Provider: Health JAMAAL, C-SectionMaternal 8 700 Cathie Hoskins PO Box care for excess Medical K, 700 1522, growth, [facility], [facility] tri, , [facility] Dr MAYO, unsp19 weeks 120, Jorge 120, [id number], gestation of Geovany [place], [place] GAEL MAYO, tel: [phone]. , [place]. tel: tel: [phone] Kian [place] Supervision of Hoskins Referring In Womens other high risk - Cathie. Provider: Health PA, pregnancies, 8 700 Cathie Hoskins PO Box second Medical K, 700 1522, trimesterAbnormal [facility], glucose , [facility] [address] MAYO, complicating 120, Jorge 120, [id number], [id number] weeks Geovany [place], [place] gestation of GAEL MAYO, tel: [phone]. , [place]. tel: tel: [phone] Kian [place] Supervision of Sep- Hoskins Referring In Womens Ultrasound other high risk - Cathie. Provider: Health JAMAAL, pregnancies, 7 700 Cathie Hoskins PO Box first Medical K, 700 1522, trimesterPrevious [facility], Low Transverse Dr, [facility] Dr MAYO, C-Afiycxh05 weeks 120, Jorge 120, [id number], gestation of Geovany [place], [place] GAEL MAYO, tel: [phone]. , [place]. tel: tel: [phone] Kian [place] Supervision of Sep-2 Hoskins Referring In Womens other high risk - Cathie. Provider: Health JAMAAL, pregnancies, 7 700 Cathie Hoskins PO Box first Medical K, 700 152, trimesterPrevious [facility] Michael, Low Transverse , [facility] Dr MAYO, C-Frlcrkn42 weeks 120, Jorge 120, , gestation of Geovany [place], GAEL, GAEL, tel: [phone]. , [place]. tel: tel: [phone] Kian [place] Supervision of Dec- Hoskins Referring In Womens other high risk Cathie. Provider: Health PA, pregnancies, 7 700 Cathie Hoskins PO Box first [facility], 700 152, trimesterPrevious [facility] Michael, Low Transverse , [facility] Dr MAYO, C-SectionPap 120, Jorge 120, , Smear Screening, Geovany [place], Mhuxyp74 weeks GAEL MAYO, tel: gestation of [phone]. , [place]. tel: tel: [phone] Kian [place] Supervision of Nov-0 Hoskins Referring In Womens other high risk Cathie. Provider: Health PA, pregnancies, 7 700 Cathie Hoskins PO Box [facility], 700 1522, trimesterLess [facility] Michael, than [address], [facility] [address] MAYO, gestation of 120, Jorge 120, , Geovany [place], GAEL MAYO, tel: [phone]. , [place]. tel: tel: [phone] Kian [place] Morbid (severe) Hoskins Referring In Womens obesity due to Cathie. Provider: Health PA, excess 7 Cathie Hoskins PO Box caloriesNicotine [facility], 700 152, dependence, [place] Add[place] Rodriguez, cigarettes, Dr, [facility] Dr MAYO, uncomplicatedPreg 120, Jorge 120, , [place], Geovany [place], incidentalBody GAEL MAYO, tel: mass index (BMI) [id number]. 40.0-44.9, adult , [place]. tel: tel: [phone] Kian [place] Morbid (severe) Bryan-2 Hoskins Referring In Womens obesity due to 6- Cathie. Provider: Health JAMAAL, excess 7 700 Cathie Hoskins PO Box caloriesEncounter [facility], 700 152, for surveillance [place] Addy Rodriguez, of contraceptive , [facility] [address] MAYO, pillsBody mass 120, Jorge 120, [id number], index (BMI) Geovany [place], [place] 40.0-44.9, adult GAEL MAYO, tel:[phone]. , [place]. tel: tel: [phone] Associates Geovany Polycystic Apr-2 Hoskins Referring In Womens ovarian 6-201 Cathie. Provider: Vishnu HINTON, syndromeMorbid 7 700 Cathie Hoskins PO Box (severe) obesity [facility], 700 152, due to excess [facility] Michael, caloriesPure , [facility] Dr MAYO, hyperglyceridemia 120, Jorge 120, , MenorrhagiaBody Geovany [place], [place] mass index (BMI) GAEL, GAEL, tel: 40.0-44.9, adult [phone]. , [place]. tel: tel: [phone] Kian [place] Polycystic Apr-2 Hoskins Referring In Womens Ultrasound ovarian 6-201 Cathie. Provider: Vishnu HINTON, syndromeMenorrhag 7 700 Cathie Hoskins PO Box iaBody mass index [facility], 700 152, (BMI) 40.0-44.9, Center Addy Rodriguez, adult , [facility] [address] MAYO, 120, Jorge 120, [id number], Geovany [place], [place], [place], tel: [phone]. , [place]. tel: tel: [phone] Kian [place] Polycystic Apr-0 Hoskins In Womens ovarian syndrome 2-201 Cathie. Health JAMAAL, 7 700 PO Box Medical [address], [address] Michael, Jorge MAYO, 120, [id number], [place], [place], tel:[phone] , [place]. tel: [phone] Kian [place] Morbid (severe) Dec-3 Hoskins Referring In Womens obesity due to 0-201 Cathie. Provider: Health PA, excess 7 700 Cathie Hoskins PO Box caloriesNicotine Medical K, 700 1522, dependence, [facility] Michael, cigarettes, , [facility] [address] MAYO, uncomplicatedMeno 120, Jorge 120, [id number], rrhagiaFemale Geovany [place], infertility [place], [place], tel: associated with [phone]. anovulationGalact , [place]. tel: orrheaBody mass tel: [phone] index (BMI) 41200164 40.0-44.9, adult Associates Geovany Nicotine Oct-2 Hoskins Referring In Womens dependence, 5-201 Cathie. Provider: Health JAMAAL, cigarettes, 6 700 Cathie Hoskins PO Box uncomplicatedPap Medical K, 700 1522, Smear Screening, [facility] Michael CervixEncounter , [facility] [address] MAYO, for removal of 120, Jorge 120, [id number], intrauterine Geovany [place], contraceptive [place], [place], tel: deviceEncounter [phone]. for removal of , [place]. tel: intrauterine tel: [phone] contraceptive [phone] deviceEncounter for oth general cnsl and advice on procreation [facility] [place] Referring In Womens Ultrasound 8-201 Roge. Provider: Health PA, [address] [place] [place], 720 1522, [place], [place] , GAEL, [id number] [place], [id number], , [place], [address]. [place] tel: tel: tel: [phone] Family History Family Member Diagnosis Age At [...] older Payers Payer name Insurance type Covered green party ID Authorization(s) [employer] - [place] [id number] [employer] - Medicaid [place] [id number] Social History Type Description Quantity Date Captured Alcohol Use Details No Caffeine Use Details Unknown Tobacco Use Status Smoking Status Current every day smoker Vital Signs Date / Height Weight BMI Pulse Blood Temperature Respiratory Body Head BMI Time: Rate Pressure Rate Surface Circumference percentile Area 285.10 42.1 138/80 -2018 lbs 0 mm[Hg] 10:07 kg/m AM eter (2) 285.10 42.1 -2017 lbs 0 10:05 kg/m AM eter (2) Chief Complaint And Reason For [...] Tobacco cessation counseling completed Appointment Gwendolyn Woods [facility] R C/S, PPTL BOOKED Future Order: Radiology Order Transvaginal Pelvic Ultrasound Ordered ([id number]) Future Order: Lab Order Pap Smear With HPV Reflex If Ordered ASCUS ([id number]), Collected on: Future Order: Radiology Order Nuchal Translucency ([id number]) Ordered Future Order: Radiology Order Ultrasound OB Follow-up ([id number]) Ordered Future Order: Radiology Order Complete OB Ultrasound > 14 Ordered Weeks ([id number]) Date Type Problem Goal Intervention Status Start [...]
--- OUTSIDE RECORDS SUMMARY | 2018-03-15 15:52 | External Medical Summary | Continuity of Care Document ---
:1990 Author Organization [facility] Address [address] [place], [place] [id number] Phone Allergies, Adverse Reactions, Alerts Substance Reaction [...] Status Morbid (severe) obesity due to excess - [...] adult Morbid (severe) obesity due to excess calories Encounter for surveillance of contraceptive pills Body mass index (BMI) 40.0-44.9, adult Nicotine dependence, cigarettes, uncomplicated Pap Smear Screening, Cervix Encounter for removal of intrauterine - contraceptive device Encounter for removal of intrauterine contraceptive device Encounter for [facility] general cnsl and advice on procreation [...] Procedure Date OB Visit 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 Advance Directives Directive Yes / No Effective Date File Name Unknown Encounters Encounter Practice Location Reason(s) Diagnoses Date Provider Care Team Description For Visit Members Kian [place] Gestational Apr-0 Hoskins Referring In Womens diabetes mellitus 5-201 Cathie. Provider: Vishnu HINTON, in , 8 700 Cathie Hoskins PO Box diet Medical [facility], 700 1522, [facility], s Low Transverse , [facility] Dr MAYO, [id number] weeks 120, Jorge 120, , gestation of [place], GAEL, GAEL, tel: [phone]. , [place]. tel: tel: [phone] Kian [place] Apr-0 Hoskins In Womens 4-201 Cathie. Vishnu HINTON, 8 700 PO Box Medical [address], [place] [address] Michael, [facility] GAEL, 120, , [place], tel: [phone] , [place]. tel: [phone] Kian [place] Morbid (severe) Dec- Hoskins Referring In Womens obesity due to 2-201 Cathie. Provider: Vishnu HINTON, excess 8 700 Cathie Hoskins PO Box caloriesSupervisi Medical K, 700 1522, on of other [facility], risk pregnancies, , [facility] Dr MAYO, second 120, Jorge 120, , trimesterAbnormal [place], [place] glucose [place], tel: complicating [phone] [id number]. weeks , [place]. tel: gestation of tel: [phone] Associates [place] Previous Low Mar-0 Hoskins Referring In Womens Transverse - Cathie. Provider: Vishnu HINTON, C-SectionAbnormal 8 700 Cathie Hoskins PO Box glucose Medical K, 700 1522, complicating [facility], [id number] weeks , [facility] Dr MAYO, gestation of 120, Jogre 120, [id number], [place], [place], tel: [phone]. , [place]. tel: tel: [phone] [facility] [place] Previous Low Feb-0 Hoskins Referring In Womens Transverse - Cathie. Provider: Vishnu HINTON, C-SectionObesity 8 700 Cathie Hoskins PO Box complicating Medical K, 700 1522, , [facility] Michael, [id number] weeks , [facility] Dr MAYO, gestation of 120, Jorge 120, [id number], [place], [place], tel: [phone]. , [place]. tel: tel: [phone] [facility] [place] Previous Low Feb-0 Hoskins Referring In Womens Ultrasound Transverse Cathie. Provider: Vishnu HINTON, C-SectionMaternal 8 700 Cathie Hoskins PO Box care for excess Medical K, 700 1522, growth, [facility], second triDr, [facility] Dr MAYO, unsp19 weeks 120, Jorge 120, [id number], gestation of [place], [place], tel: [phone]. , [place]. tel: tel: [phone] Kian [place] Supervision of Hoskins Referring In Womens other high risk Cathie. Provider: Health JAMAAL, pregnancies, 8 700 Cathie Hoskins PO Box second Medical K, 700 1522, trimesterAbnormal [facility], glucose Dr, [facility] Dr MAYO, complicating 120, Jorge 120, [id number], [id number] weeks [place], gestation of GAEL MAYO, tel: [phone]. , [place]. tel: tel: [phone] [facility] [place] Supervision of Dec-2 Hoskins Referring In Womens Ultrasound other high risk - Cathie. Provider: Health PA, pregnancies, 7 700 Cathie Hoskins PO Box [facility] Medical , 700 1522, trimesterPrevious [facility], Low Transverse Dr, [facility] Dr MAYO, C-Wfherso37 weeks 120, Jorge 120, , gestation of [place], [place] GAEL MAYO, tel: [phone]. , [place]. tel: tel: [phone] Kian [place] Supervision of Dec-2 Hoskins Referring In Womens other high risk - Cathie. Provider: Health PA, pregnancies, 7 700 Cathie Hoskins PO Box [facility] Medical , 700 1522, [facility], Low Transverse , [facility] Dr MAYO, C-[id number] weeks 120, Jorge 120, , gestation of [place], [place] GAEL MAYO, tel: [phone]. , [place]. tel: tel: [phone] Kian [place] Supervision of Dec-0 Hoskins Referring In Womens other high risk - Cathie. Provider: Health PA, pregnancies, 7 700 Cathie Hoskins PO Box [facility] Medical , 700 1522, [facility], Low Transverse Dr, [facility] Dr MAYO, C-SectionPap 120, Jorge 120, [id number], Smear Screening, [place], [place] Afrnql78 weeks GAEL MAYO, tel: gestation of [phone]. , [place]. tel: tel: [phone] Kian [place] Supervision of Nov-0 Hoskins Referring In Womens other high risk 7- Cathie. Provider: Health PA, pregnancies, 7 700 Cathie Hoskins PO Box first Medical , 1521, trimesterLess [facility], than 8 weeks , [facility] Dr MAYO, gestation of 120, Jorge 120, , [place], GAEL MAYO, tel: [phone]. , [place]. tel: tel: [phone] Kian [place] Morbid (severe) Oct- Hoskins Referring In Womens obesity due to 9-201 Cathie. Provider: Health PA, excess Cathie Hoskins PO Box caloriesNicotine [facility], 1521, dependence, [facility] Michael, cigarettes, , [facility] Dr MAYO, uncomplicatedPreg 120, Jorge 120, , [place], [place], [place] incidentalBody GAEL MAYO, tel: mass index (BMI) [phone]. 40.0-44.9, adult , [place]. tel: tel: [phone] Kian [place] Morbid (severe) Bryan-2 Hoskins Referring In Womens obesity due to 6-201 Cathie. Provider: Health PA, excess 700 Cathie Hoskins PO Box caloriesEncounter [facility], 1521, [facility] of contraceptive Dr, [facility] Dr MAYO, pillsBody mass 120, Jorge 120, , index (BMI) [place], [place] 40.0-44.9, adult GAEL MAYO, tel:[phone]. , [place]. tel: tel: [phone] [facility] [place] Polycystic Apr-2 Hoskins Referring In Womens ovarian 6-201 Cathie. Provider: Health PA, syndromeMorbid 700 Cathie Hoskins PO Box (severe) obesity Medical , 1521, due to excess [facility] Michael, caloriesPure , [facility] Dr MAYO, hyperglyceridemia 120, Jorge 120, , MenorrhagiaBody [place], mass index (BMI) GAEL MAYO, tel: 40.0-44.9, adult [phone]. , [place]. tel: tel: [phone] [facility] [place] Polycystic Apr-2 Hoskins Referring In Womens Ultrasound ovarian 6-201 Cathie. Provider: Health JAMAAL, syndromeMenorrhag 7 700 Cathie Hoskins PO Box iaBody mass index Medical , 700 1522, (BMI) 40.0-44.9, [facility] Michael, adult , [facility] Dr MAYO, 120, Jorge 120, [id number], [place], [facility] [place], [place], tel: [phone]. , [place]. tel: tel: [phone] Kian [place] Polycystic Apr-0 Hoskins In Womens ovarian syndrome 2-201 Cathie. Health PA, 7 700 PO Box Medical 1522, [place], , [facility] GAEL, 120, [id number], [place], tel: [phone] , [place]. tel: [phone] Kian [place] Morbid (severe) Mar-3 Hoskins Referring In Womens obesity due to 0-201 Cathie. Provider: Health JAMAAL, excess 7 700 Cathie Hoskins PO Box caloriesNicotine Medical , 700 1522, dependence, [facility] [address], [facility] Dr MAYO, uncomplicatedMeno 120, Jorge 120, [id number], rrhagiaFemale [place], infertility [place], [place], tel: associated with [phone]. anovulationGalact , [place]. tel: orrheaBody mass tel: [phone] index (BMI) [id number] 40.0-44.9, adult [facility] [place] Nicotine Patrick-2 Hoskins Referring In Womens dependence, 5-201 Cathie. Provider: Health JAMAAL, cigarettes, 6 700 Cathie Hoskins PO Box uncomplicatedPap Medical , 700 1522, Smear Screening, [facility] Michael, CervixEnctigre [place], [facility] Dr MAYO, for removal of 120, Jorge 120, [id number], intrauterine [place], contraceptive [place], [place], tel: deviceEncounter [phone]. [id number] for removal of , [place]. tel: intrauterine tel: [phone] contraceptive [phone] deviceEncounter for oth general cnsl and advice on procreation [facility] [place] Referring In Womens Ultrasound 8-201 Roge. Provider: [facility] JAMAAL, [address], 720 3362, [facility] GAEL [place], [id number] [place], [id number], , . [place], [address]. [place] tel: tel: tel: [phone] Family History Family Member Diagnosis Age At [...] Authorization(s) [employer] - Medicaid [place] [id number] [employer] - Medicaid [place] [id number] Social History Type Description Quantity Date Captured Alcohol Use Details No Caffeine Use Details Unknown Tobacco Use Status Smoking Status Current every day smoker Vital Signs Date / Height Weight BMI Pulse Blood Temperature Respiratory Body Head BMI Time: Rate Pressure Rate Surface Circumference percentile Area 285.90 42.2 130/78 -2018 lbs 2 mm[Hg] 8:31 kg/m AM eter (2) Chief Complaint And [...] Appointment Gwendolyn Woods BOOKED Appointment Gwendolyn Woods [facility] PPTL BOOKED Future Order: Radiology Order Transvaginal Pelvic Ultrasound Ordered ([id number]) Future Order: Lab Order Pap Smear With HPV Reflex If Ordered ASCUS ([id number]), Collected on: Future Order: Radiology Order Nuchal Translucency ([id number]) Ordered Future Order: Radiology Order Complete OB Ultrasound > 14 Ordered Weeks ([id number]) Date Type Problem Goal Intervention Status Start [...]
--- OUTSIDE RECORDS SUMMARY | 2018-03-15 15:52 | External Medical Summary | Continuity of Care Document ---
:1990 Author Organization [facility] Allergies Active Description Code Type Severity Reaction Onset Reported/ Identified Relationship Clinical to Patient Status Yes No Known 74584 3 N/A N/A Drug 0 Allergies Yes No Known No Aller Unknown N/A 08/24/2017 Drug Known gy Allergies Drug Aller gies Medications Medication Packaging Start Date Stop Date Route Dosage Sig Patch 11/10/2015 NICOTINE PATCH 7 apply 1 patch by transdermal route every day for 6 weeks, then 7 mg/ day for 6 weeks. Package 01/13/2017 SPRINTEC 7 take 1 tablet by oral route every day Dose Pack 01/13/2017 CHANTIX 7 take 1 by Oral route as directed on starter pack Package 04/11/2017 AVIANE 7 take 1 tablet by oral route every day Tablet 08/04/2017 PLUS take 1 tablet by oral route every day No 08/24/2017 home meds Capsule 09/22/2017 CLINDAMYCIN HCL 7 take 1 Tablet by Oral route 2 times every day for 7 days Capsule 11/03/2017 MACROBID 8 Kit 01/18/2018 BLOOD GLUCOSE check by MONITORING Misc.(Non-Drug; Combo Route) route blood sugar QID, fasting and 2 hours after each meal Box 01/18/2018 BLOOD GLUCOSE test 1 by TEST STRIP Injection route QID (fasting and 2 hours postprandial) Box 01/18/2018 LANCETS ULTRA testing QID THIN Problems Date Dx Attending Type Code Diagnosis Diagnosed By Coded 02/09/2017 Cathie Tobias E28.2 Polycystic ovarian syndrome 02/09/2017 Cathie Tobias N92.0 Menorrhagia 02/09/2017 Cathie Tobias Z68.41 Body mass index (BMI) 40.0-44.9, adult 08/23/2017 W 649.03 Tobacco Use Disorder, Antepartum 08/23/2017 W 649.13 Obesity, Antepartum 08/23/2017 W 655.93 Suspected Abnormality, Unspecified, Antepartum 08/23/2017 W 796.5 Abnormal Finding On Screen 08/23/2017 W V28.81 Anatomic Survey 08/24/2017 GAURAV CEDENO MD J45.909 Unspecified asthma, E uncomplicated 08/24/2017 GAURAV CEDENO MD O99.331 Smoking (tobacco) E complicating , first trimester 08/24/2017 GAURAV CEDENO MD O99.511 Diseases of the E respiratory system complicating , first trimester 08/24/2017 GAURAV CEDENO MD Z3A.01 Less than 8 weeks E gestation of 10/06/2017 Cathie Tobias O09.891 Supervision of other high risk pregnancies, first trimester 10/06/2017 Cathie Tobias O34.211 Previous Low Transverse 10/06/2017 Cathie Tobias Z3A.13 13 weeks gestation of 11/17/2017 Cathie Tobias O34.211 Previous Low Transverse 11/17/2017 Cathie Tobias O36.62x0 Maternal care for excess growth, second tri, unsp 11/17/2017 Cathie Tobias Z3A.19 19 weeks gestation of 01/09/2018 CATHIE TOBIAS MD O99.332 Smoking (tobacco) CATHIE TOBIAS MD complicating K , second trimester 01/09/2018 CATHIE TOBIAS MD O99.89 Other specified CATHIE TOBIAS MD diseases and K conditions complicating , childbirth and the puerperium 01/09/2018 CATHIE TOBIAS MD R05 Cough CATHIE TOBIAS MD 01/09/2018 CATHIE TOBIAS MD R11.2 Nausea with CATHIE TOBIAS MD vomiting, K unspecified 01/09/2018 CATHIE TOBIAS MD3A.27 27 weeks gestation CATHIE TOBIAS MD of K 01/09/2018 CATHIE TOBIAS MD Z86.32 Personal history of CATHIE TOBIAS MD gestational diabetes K 02/01/2018 Cathie Tobias O24.410 Gestational diabetes mellitus in , diet controlled 02/01/2018 Cathie Tobias O34.211 Previous Low Transverse 02/01/2018 Tobias, Cathie Ballard O99.213 Obesity complicating , third trimester 02/01/2018 Tobias, Cathie Ballard Z3A.30 30 weeks gestation of Procedures Code Description [place] [address] OB US, 12/14/2010 DETAILED, SNGL FETUS 74171 12/14/2010 Office/outpatient [place] [address] Ultrasound, 02/09/2017 transvaginal 69947 Ultrasound, 10/06/2017 Nuchal Translucency Measurement 49299 Ultrasnd exam 11/17/2017 of preg uterus, compl 15201 Ultrasnd preg 02/01/2018 uterus, flwup/repeat Results Test Result Range L900.0530 - 01/09/18 13:33 Glucometer 68 mg/dL 65-110 Encounters ACCT No. Visit Discharge Status Pt. Type Provider Facility Loc./Unit Complaint Date/Time [id number] 02/01/2018 02/01/2018 CLS Outpatient Tobias, 10:30:00 23:59:59 Cathie Nguyễn [id number] 02/01/2018 02/01/2018 CLS Outpatient Tobias, 09:45:00 23:59:59 Cathie Nguyễn [id number] 01/19/2018 01/19/2018 CLS Outpatient Tobias, 09:40:00 23:59:59 Cathie Nguyễn [id number] 01/18/2018 01/18/2018 CLS Outpatient Tobias, 16:03:00 23:59:59 Cathie Nguyễn [id number] 01/09/2018 01/09/2018 CLS Outpatient Tobias, 15:11:00 23:59:59 Cathie Nguyễn [id number] 01/06/2018 01/06/2018 CLS Outpatient Tobias, 08:13:00 23:59:59 Cathie Nguyễn [id number] 01/05/2018 01/05/2018 CLS Outpatient Tobias, 09:00:00 23:59:59 Cathie Gopi [id number] 12/15/2017 12/15/2017 CLS Outpatient Tobias, 11:15:00 23:59:59 Cathie oGpi [id number] 11/17/2017 11/17/2017 CLS Outpatient Tobias, 10:55:00 23:59:59 Cathie Gopi [id number] 11/17/2017 11/17/2017 CLS Outpatient Tobias, 10:15:00 23:59:59 Cathie Nguyễn [id number] 11/03/2017 11/03/2017 CLS Outpatient Tobias, 11:15:00 23:59:59 Cathie Nguyễn [id number] 10/06/2017 10/06/2017 CLS Outpatient Tobias, 11:15:00 23:59:59 Cathie Nguyễn [id number] 10/06/2017 10/06/2017 CLS Outpatient Tobias, 11:05:00 23:59:59 Cathie Nguyễn [id number] 09/30/2017 09/30/2017 CLS Outpatient Tobias, 09:48:00 23:59:59 Cathie Nguyễn [id number] 09/23/2017 09/23/2017 CLS Outpatient Tobias, 14:21:00 23:59:59 Cathie Nguyễn [id number] 09/22/2017 09/22/2017 CLS Outpatient Tobias, 08:45:00 23:59:59 Cathie Nugyễn [id number] 08/25/2017 08/25/2017 CLS Outpatient Tobias, 14:11:00 23:59:59 Cathie Nguyễn [id number] 08/23/2017 08/23/2017 CLS Outpatient Tobias, 08:30:00 23:59:59 Cathie Nguyễn [id number] 08/04/2017 08/04/2017 CLS Outpatient Tobias, 10:45:00 23:59:59 Cathie Nguyễn [id number] 05/17/2017 05/17/2017 CLS Outpatient Tobias, 16:42:00 23:59:59 Cathie Nguyễn [id number] 04/11/2017 04/11/2017 CLS Outpatient Tobias, 14:30:00 23:59:59 Cathie Nguyễn [id number] 02/09/2017 02/09/2017 CLS Outpatient Tobias, 10:40:00 23:59:59 Cathie Nguyễn [id number] 02/09/2017 02/09/2017 CLS Outpatient Tobias, 10:15:00 23:59:59 Cathie Nguyễn [id number] 01/27/2017 01/27/2017 CLS Outpatient Cotto, 14:21:00 23:59:59 Roge Edwards [id number] 01/16/2017 01/16/2017 CLS Outpatient Tobias, 14:06:00 23:59:59 Cathie Nguyễn [id number] 01/13/2017 01/13/2017 CLS Outpatient Tobias, 09:50:00 23:59:59 Cathie Nguyễn [id number] 11/10/2015 11/10/2015 CLS Outpatient Tobias, 13:25:00 23:59:59 Cathie Nguyễn [id number] 12/14/2010 Document 11:30:00 Registration [id number] 01/19/2018 01/19/2018 CLS Outpatient TOBIAS , [facility] [id number] 12:10:00 23:59:59 CATHIE Nguyễn O24.319 [id number] 01/09/2018 01/09/2018 DIS Outpatient JATINDER LOGAN, [place] triage [id number] 12:21:00 15:30:00 JOLIET Gopi [facility] [id number] 08/24/2017 08/25/2017 DIS Emergency WILIAN LOGAN, [place] Trouble [id number] 21:42:00 00:05:00 [facility]/ [place] chest hurts [id number] 10/17/2016 10/17/2016 DIS Emergency TRENT [place] ED 1446 19:07:00 20:32:00 , [facility] [id number] 07/10/2016 07/10/2016 DIS Emergency LONG [place] ED [id number] 21:26:00 22:20:00 , [facility] [id number] 03/16/2016 03/17/2016 DIS Emergency [place] FORRESTER MD ED [id number] 20:06:00 00:19:00 [facility] [id number] 04/06/2018 PEN Preadmit JATINDER LOGAN, [place] Repeat C 0603 12:00:00 CATHIE Gopi [facility] [id number] 05/30/2016 Document 8119 12:20:00 Registration [id number] 05/30/2016 Document 3222 12:20:00 Registration [id number] 05/30/2016 Document 2116 12:20:00 Registration [id number] 05/30/2016 Document 5531 12:20:00 Registration [id number] 05/30/2016 Document 9072 12:20:00 Registration [id number] 05/30/2016 Document 6359 12:20:00 Registration [id number] 05/30/2016 Document 6128 12:20:00 Registration [id number] 05/30/2016 Document 7884 12:20:00 Registration [id number] 05/30/2016 Document 2446 12:20:00 Registration [id number] 05/30/2016 Document 9564 12:20:00 Registration [id number] 05/30/2016 Document 7817 12:19:00 Registration [id number] 05/30/2016 Document 2077 12:19:00 Registration [id number] 05/30/2016 Document 0339 12:19:00 Registration [id number] 05/30/2016 Document 5797 12:19:00 Registration [id number] 05/30/2016 Document 1384 12:19:00 Registration [id number] 05/30/2016 Document 8052 12:19:00 Registration [id number] 05/30/2016 Document 8078 12:19:00 Registration [id number] 05/30/2016 Document 4968 12:19:00 Registration [id number] 05/30/2016 Document 6606 12:19:00 Registration [id number] 05/30/2016 Document 7054 12:19:00 Registration [id number] 05/30/2016 Document 3648 12:19:00 Registration [id number] 05/30/2016 Document 8611 12:19:00 Registration [id number] 05/30/2016 Document 0430 12:19:00 Registration [id number] 05/30/2016 Document 3919 12:19:00 Registration [id number] 05/30/2016 Document 5250 12:19:00 Registration [id number] 05/30/2016 Document 6407 12:19:00 Registration [id number] 05/30/2016 Document 4005 12:19:00 Registration [id number] 05/30/2016 Document 2429 12:19:00 Registration [id number] 05/30/2016 Document 9266 12:19:00 Registration [id number] 05/30/2016 Document 8978 12:19:00 Registration [id number] 05/30/2016 Document 9380 12:19:00 Registration [id number] 05/30/2016 Document 9620 12:19:00 Registration [id number] 05/30/2016 Document 9040 12:19:00 Registration [id number] 05/30/2016 Document 6632 12:19:00 Registration [id number] 05/30/2016 Document 7412 12:19:00 Registration [id number] 05/30/2016 Document 6371 12:19:00 Registration
--- OUTSIDE RECORDS SUMMARY | 2018-03-15 15:52 | External Medical Summary | Continuity of Care Document ---
:1990 Author Organization [facility] [employer] Address [address] [place], [place] [id number] Phone Allergies, Adverse Reactions, Alerts Substance Reaction [...] Transverse - 28 weeks gestation of - Morbid (severe) obesity [...] removal of intrauterine contraceptive device Encounter for [facility] general cnsl and advice on [...] Procedures Procedure Date OB Visit No Charge Results Test Name Date and Time Measure Units Reference Range Abnormal Flag Comments Unknown Advance Directives Directive Yes / No Effective Date File Name Unknown Encounters Encounter Practice Location Reason(s) Diagnoses Date Provider Care Team Description For Visit Members Kian [place] Supervision of Hoskins Referring In Womens other high risk 8- Cathie. Provider: Vishnu HINTON, pregnancies, 8 700 Cathie Hoskins [address] [facility] [employer], 700 1522, trimesterGestatio [facility], [facility] diabetes , [facility] [address] MAYO, mellitus in 120, Jorge 120, [id number], , diet Geovany [place], [place] controlledPrevi [place]O, tel: s Low Transverse [phone]. [id number]-[id number] weeks , [place]. tel: gestation of tel: [phone] Kian [place] Gestational Jan-1 Hoskins Referring In Womens Ultrasound diabetes mellitus 8-201 Cathie. Provider: Vishnu HINTON, in , 8 700 Cathie Hoskins [address] [employer] [facility] [employer], 700 1522, [facility], Low Transverse , [facility] [address] MAYO, C-SectionObesity 120, Jorge 120, [id number], complicating Geovany [place], [place] , third GAEL MAYO, tel: [id number] weeks [phone]. gestation of , [place]. tel: tel: [phone] Kian [place] Gestational Apr-0 Hoskins Referring In Womens diabetes mellitus 5-201 Cathie. Provider: Vishnu HINTON, in , 8 700 Cathie Hoskins [address] [employer], 700 1522, [facility], s Low Transverse , [facility] [address] MAYO, C-[id number] weeks 120, Jorge 120, , gestation of Geov[place], [place], [place], tel: [phone]. , [place]. tel: tel: [phone] [facility] Apr-0 Hoskins In Womens 4-201 Cathie. Vishnu HINTON, 8 700 [address], [place] [address] Michael, [facility] GAEL, 120, , [place], tel: [phone] , [place]. tel: [phone] [facility] Morbid (severe) Mar-2 Hoskins Referring In Womens obesity due to 2-201 Cathie. Provider: Vishnu HINTON, excess 8 700 Cathie Hoskins PO Box [employer] [facility] , 700 1522, on of other [facility], risk pregnancies, , [facility] [address] MAYO, second 120, Jorge 120, , trimesterAbnormal Geovany [place], [place] glucose [place], [place], tel: complicating [phone]. [id number] weeks , [place]. tel: gestation of tel: [phone] Associates [facility] Previous Low Mar-0 Hoskins Referring In Womens Transverse 1-201 Cathie. Provider: Vishnu HINTON, C-SectionAbnormal 8 700 Cathie Hoskins PO Box glucose Medical , 700 1522, complicating [facility], [id number] weeks , [facility] [address] MAYO, gestation of 120, Jorge 120, , [place]ov[place], [place], [place], tel: [phone]. , [place]. tel: tel: [phone] [facility] Previous Low Feb-0 Hoskins Referring In Womens Transverse 1-201 Cathie. Provider: Vishnu HINTON, C-SectionObesity 8 700 Cathie Hoskins PO Box complicating Medical , 700 1522, , second [facility], [id number] weeks , [facility] [address] MAYO, gestation of 120, Jorge 120, [id number], Geovany [place], [place] GA[place] MAYO, tel: [phone]. , [place]. tel: tel: [phone] Kian [place] Previous Low Feb-0 Hoskins Referring In Womens Ultrasound Transverse - Cathie. Provider: Health JAMAAL, C-SectionMaternal 8 700 Cathie Hoskins PO Box care for excess Medical K, 700 1522, growth, [facility], [employer] [facility] [employer] tri, , [facility] [address] MAYO, unsp19 weeks 120, Jorge 120, [id number], gestation of Geovany [place], [place] MAYO, tel: [phone]. , [place]. tel: tel: [phone] Kian [place] Supervision of Hoskins Referring In Womens other high risk Cathie. Provider: Health PA, pregnancies, 8 700 Cathie Hoskins PO Box second Medical K, 700 1522, trimesterAbnormal [facility], glucose Dr, [facility] Dr MAYO, complicating 120, Jorge 120, [id number], [id number] weeks Geovany [place], [place] gestation of GAEL MAYO, tel: [phone]. , [place]. tel: tel: [phone] Kian [place] Supervision of Sep-2 Hoskins Referring In Womens Ultrasound other high risk - Cathie. Provider: Health JAMAAL, pregnancies, 7 700 Cathie Hoskins PO Box first Medical K, 700 1522, trimesterPrevious [facility], Low Transverse Dr, [facility] Dr MAYO, C-Fjuyvru53 weeks 120, Jorge 120, [id number], gestation of Geovany [place], [place] GA[place] MAYO, tel: [phone]. , [place]. tel: tel: [phone] Kian [place] Supervision of Dec-2 Hoskins Referring In Womens other high risk - Cathie. Provider: Health JAMAAL, pregnancies, 7 700 Cathie Hoskins PO Box first Medical K, 700 152, trimesterPrevious [facility], Low Transverse , [facility] [address] MAYO, C-Cqxgygz74 weeks 120, Jorge 120, , gestation of Geovany [place], GAEL, [place], tel:[phone]. , [place]. tel: tel: [phone] Kian [place] Supervision of Dec- Hoskins Referring In Womens other high risk Cathie. Provider: Health PA, pregnancies, 7 700 Cathie Hoskins PO Box first [facility], 152, trimesterPrevious [facility] [place], Low Transverse , [facility] [address] MAYO, C-SectionPap 120, Jorge 120, , Smear Screening, Geovany [place], Kxrpux07 weeks GAEL MAYO, tel: gestation of [phone]. , [place]. tel: tel: [phone] Kian [place] Supervision of Nov- Hoskins Referring In Womens other high risk Cathie. Provider: Health PA, pregnancies, 7 700 Cathie Hoskins PO Box [facility], 700 152, trimesterLess [facility] [place], than [address], [facility] [address] MAYO, gestation of 120, Jorge 120, , Geovany [place], GA[place] MAYO, tel: [phone]. , [place]. tel: tel: [phone] Kian [place] Morbid (severe) Hoskins Referring In Womens obesity due to Cathie. Provider: Health PA, excess 7 Cathie Hoskins PO Box caloriesNicotine [facility], 152, dependence, [facility] [place], cigarettes, Dr, [facility] Dr MAYO, uncomplicatedPreg 120, Jorge 120, , nant state, Geovany [place], incidentalBody [place] MAYO, tel: mass index (BMI) [phone]. 40.0-44.9, adult , [place]. tel: tel: [phone] Kian [place] Morbid (severe) Bryan-2 Hoskins Referring In Womens obesity due to 6- Cathie. Provider: Health JAMAAL, excess 7 700 Cathie Hoskins PO Box caloriesEncounter [facility], 700 1521, for surveillance [facility] [place], of contraceptive , [facility] [address] MAYO, pillsBody mass 120, Jorge 120, [id number], index (BMI) Geovany [place], [place] 40.0-44.9, adult [place] MAYO, tel: [phone]. , [place]. tel: tel: [phone] [facility] Polycystic Apr-2 Hoskins Referring In Womens ovarian 6-201 Cathie. Provider: Health JAMAAL, syndromeMorbid 7 700 Cathie Hoskins PO Box (severe) obesity [facility], 700 1521, due to excess [facility] [place], caloriesPure , [facility] [address] MAYO, hyperglyceridemia 120, Jorge 120, , MenorrhagiaBody Geovany [place], [place] mass index (BMI) GAEL, GAEL, tel: 40.0-44.9, adult [phone]. , [place]. tel: tel: [phone] [facility] [place] Polycystic Apr-2 Hoskins Referring In Womens Ultrasound ovarian 6-201 Cathie. Provider: Vishnu HINTON, syndromeMenorrhag 7 700 Cathie Hoskins PO Box iaBody mass index [facility], 700 1521, (BMI) 40.0-44.9, [place]y Rodriguez, adult , [facility] [address] MAYO, 120, Jorge 120, [id number], Geovany [place], [place], [place], tel: [phone]. , [place]. tel: tel: [phone] Kian [place] Polycystic Apr-0 Hoskins In Womens ovarian syndrome 2-201 Cathie. Health JAMAAL, 7 700 [address], [place] [address] Michael, [place], 120, [id number], [place], [place], tel:[phone] , [place]. tel: [phone] Kian [place] Morbid (severe) Mar-3 Hoskins Referring In Womens obesity due to 0-201 Cathie. Provider: Health PA, excess 7 700 Cathie Hoskins PO Box caloriesNicotine Medical K, 700 1522, dependence, [facility] paul Rodriguez, , [facility] [address] MAYO, uncomplicatedMeno 120, Jorge 120, [id number], rrhagiaFemale Geovany [place], infertility [place], [place], tel: associated with [phone]. anovulationGalact , [place]. tel: orrheaBody mass tel: [phone] index (BMI) [id number] 40.0-44.9, adult [facility] Nicotine Oct- Hoskins Referring In Womens dependence, 5-201 Cathie. Provider: Health JAMAAL, cigarettes, 6 700 Cathie Hoskins PO Box uncomplicatedPap Medical K, 700 1522, Smear Screening, [facility] Michael CervixEnctigre [place], [facility] [address] MAYO, for removal of 120, Jorge 120, [id number], intrauterine Geovany [place], contraceptive [place], [place], tel: deviceEncounter [phone]. for removal of , [place]. tel: intrauterine tel: [phone] contraceptive [phone] deviceEncounter for ot general cnsl and advice on procreation [facility] Nov- [place] Referring In Womens Ultrasound 8-201 Roge. Provider: Health JAMAAL, [address] [place], [address] 1522, [place], [place] , [place], [id number] [place]ov[place], [id number], , [place], [address]. [place] tel: tel: tel: [phone] Family History Family Member Diagnosis Age At [...] Authorization(s) [employer] - [place] [id number] [employer] - Medicaid [place] [id number] Social History Type Description Quantity Date Captured Alcohol Use Details No Caffeine Use Details Unknown Tobacco Use Status Smoking Status Current every day smoker Vital Signs Date / Height Weight BMI Pulse Blood Temperature Respiratory Body Head BMI Time: Rate Pressure Rate Surface Circumference percentile Area 42.2 2 9:54 kg/m AM eter (2) 283.90 41.9 126/79 -2018 lbs 2 mm[Hg] 9:59 kg/m AM eter (2) Chief Complaint And [...] Appointment Gwendolyn Woods BOOKED Appointment Gwendolyn Woods MDC R C/S, PPTL BOOKED Future Order: Radiology Order Transvaginal Pelvic Ultrasound Ordered ([id number]) Future Order: Lab Order Pap Smear With HPV Reflex If Ordered ASCUS ([id number]), Collected on: Future Order: Radiology Order Nuchal Translucency ([id number]) Ordered Future Order: Radiology Order Ultrasound OB Follow-up ([id number]) Ordered Future Order: Radiology Order Complete OB Ultrasound > 14 Ordered Weeks ([id number]) Date Type Problem Goal Intervention Status Start [...]
--- OUTSIDE RECORDS SUMMARY | 2018-03-15 15:55 | External Medical Summary | Continuity of Care Document ---
:1990 Author Organization [facility] Allergies Active Description Code Type Severity Reaction Onset Reported/ Identified Relationship Clinical to Patient Status Yes No Known 05695 3 N/A N/A Drug 0 Allergies Yes [...] Procedures Code [place] [address] OB US, 12/14/2010 DETAILED, SNGL FETUS 01972 12/14/2010 Office/outpatient visit,[place], [place] [address] Ultrasound, 02/09/2017 transvaginal 77674 Ultrasound, 10/06/2017 Nuchal Translucency Measurement 89144 Ultrasnd exam 11/17/2017 of preg uterus, compl 96630 Ultrasnd preg 02/01/2018 uterus, flwup/repeat Results Test Result Range L900.0530 - 01/09/18 13:33 Glucometer 68 mg/dL 65-110 Encounters ACCT No. Visit Discharge Status Pt. Type Provider Facility Loc./Unit Complaint Date/Time [id number] 02/01/2018 02/01/2018 CLS Outpatient Tobias, 10:30:00 23:59:59 Cathie Nguyễn [id number] 02/01/2018 02/01/2018 CLS Outpatient Tobias, 09:45:00 23:59:59 Cathie Nguyễn [id number] 01/19/2018 01/19/2018 CLS Outpatient Tobias, 09:40:00 23:59:59 Cathie Nguyễn [id number] 01/18/2018 01/18/2018 CLS Outpatient Tobias, 16:03:00 23:59:59 Cathie Nguyễn [id number] 01/09/2018 01/09/2018 CLS Outpatient Tobias, 15:11:00 23:59:59 Cathie Nguyễn [id number] 01/06/2018 01/06/2018 CLS Outpatient Tobias, 08:13:00 23:59:59 Cathie Nguyễn [id number] 01/05/2018 01/05/2018 CLS Outpatient Tobias, 09:00:00 23:59:59 Cathie Gopi [id number] 12/15/2017 12/15/2017 CLS Outpatient Tobias, 11:15:00 23:59:59 Cathie Gopi [id number] 11/17/2017 11/17/2017 CLS Outpatient Tobias, 10:55:00 23:59:59 Cathie Gopi [id number] 11/17/2017 11/17/2017 CLS Outpatient Tobias, 10:15:00 23:59:59 Cathie Nguyễn [id number] 11/03/2017 11/03/2017 CLS Outpatient Tobias, 11:15:00 23:59:59 Cathie Nguyễn [id number] 10/06/2017 10/06/2017 CLS Outpatient Tobias, 11:15:00 23:59:59 Cathie Nguyễn [id number] 10/06/2017 10/06/2017 CLS Outpatient Tobias, 11:05:00 23:59:59 Cathie Nguyễn [id number] 09/30/2017 09/30/2017 CLS Outpatient Tobias, 09:48:00 23:59:59 Cathie Nguyễn [id number] 09/23/2017 09/23/2017 CLS Outpatient Tobias, 14:21:00 23:59:59 Cathie Nguyễn [id number] 09/22/2017 09/22/2017 CLS Outpatient Tobias, 08:45:00 23:59:59 Cathie Nguyễn [id number] 08/25/2017 08/25/2017 CLS Outpatient Tobias, 14:11:00 23:59:59 Cathie Nguyễn [id number] 08/23/2017 08/23/2017 CLS Outpatient Tobias, 08:30:00 23:59:59 Cathie Nguyễn [id number] 08/04/2017 08/04/2017 CLS Outpatient Tobias, 10:45:00 23:59:59 Cathie Nguyễn [id number] 05/17/2017 05/17/2017 CLS Outpatient Tobias, 16:42:00 23:59:59 Cathie Nguyễn [id number] 04/11/2017 04/11/2017 CLS Outpatient Tobias, 14:30:00 23:59:59 Cathie Nguyễn [id number] 02/09/2017 02/09/2017 CLS Outpatient Tobias, 10:40:00 23:59:59 Cathie Nguyễn [id number] 02/09/2017 02/09/2017 CLS Outpatient Tobias, 10:15:00 23:59:59 Cathie Nguyễn [id number] 01/27/2017 01/27/2017 CLS Outpatient Cotto, 14:21:00 23:59:59 Roge Edwards [id number] 01/16/2017 01/16/2017 CLS Outpatient Tobias, 14:06:00 23:59:59 Cathie Nguyễn [id number] 01/13/2017 01/13/2017 CLS Outpatient Tobias, 09:50:00 23:59:59 Cathie Nguyễn [id number] 11/10/2015 11/10/2015 CLS Outpatient Tobias, 13:25:00 23:59:59 Cathie Nguyễn [id number] 12/14/2010 Document 11:30:00 Registration [id number] 01/19/2018 01/19/2018 CLS Outpatient TOBIAS , [facility] [id number] 12:10:00 23:59:59 CATHIE Nguyễn [id number] 01/09/2018 01/09/2018 DIS Outpatient JATINDER LOGAN, [place] triage 1009 12:21:00 15:30:00 [place] Gopi [facility] [id number] 08/24/2017 08/25/2017 DIS Emergency WILIAN LOGAN, [place] Trouble [id number] 21:42:00 00:05:00 [facility] [place] chest hurts [id number] 10/17/2016 10/17/2016 DIS Emergency AVISTON Ge[place] ED 1446 19:07:00 20:32:00 , [facility] [id number] 07/10/2016 07/10/2016 DIS Emergency LONG [place] ED 3748 21:26:00 22:20:00 , [facility] [id number] 03/16/2016 03/17/2016 DIS Emergency Geovany FORRESTER MD ED [id number] 20:06:00 00:19:00 [facility] [id number] 04/06/2018 PEN Preadmit JATINDER LOGAN, [place] Repeat C 0603 12:00:00 CATHIE Gopi [facility] [id number] 05/30/2016 Document 8119 12:20:00 Registration [id number] 05/30/2016 Document 3222 12:20:00 Registration [id number] 05/30/2016 Document 2116 12:20:00 Registration [id number] 05/30/2016 Document 5531 12:20:00 Registration [id number] 05/30/2016 Document 9072 12:20:00 Registration [id number] 05/30/2016 Document 6359 12:20:00 Registration [id number] 05/30/2016 Document 6128 12:20:00 Registration [id number] 05/30/2016 Document 7884 12:20:00 Registration [id number] 05/30/2016 Document 2446 12:20:00 Registration [id number] 05/30/2016 Document 9564 12:20:00 Registration [id number] 05/30/2016 Document 7817 12:19:00 Registration [id number] 05/30/2016 Document 2077 12:19:00 Registration [id number] 05/30/2016 Document 0339 12:19:00 Registration [id number] 05/30/2016 Document 5797 12:19:00 Registration [id number] 05/30/2016 Document 1384 12:19:00 Registration [id number] 05/30/2016 Document 8052 12:19:00 Registration [id number] 05/30/2016 Document 8078 12:19:00 Registration [id number] 05/30/2016 Document 4968 12:19:00 Registration [id number] 05/30/2016 Document 6606 12:19:00 Registration [id number] 05/30/2016 Document 7054 12:19:00 Registration [id number] 05/30/2016 Document 3648 12:19:00 Registration [id number] 05/30/2016 Document 8611 12:19:00 Registration [id number] 05/30/2016 Document 0430 12:19:00 Registration [id number] 05/30/2016 Document 3919 12:19:00 Registration [id number] 05/30/2016 Document 5250 12:19:00 Registration [id number] 05/30/2016 Document 6407 12:19:00 Registration [id number] 05/30/2016 Document 4005 12:19:00 Registration [id number] 05/30/2016 Document 2429 12:19:00 Registration [id number] 05/30/2016 Document 9266 12:19:00 Registration [id number] 05/30/2016 Document 8978 12:19:00 Registration [id number] 05/30/2016 Document 9380 12:19:00 Registration [id number] 05/30/2016 Document 9620 12:19:00 Registration [id number] 05/30/2016 Document 9040 12:19:00 Registration [id number] 05/30/2016 Document 6632 12:19:00 Registration [id number] 05/30/2016 Document 7412 12:19:00 Registration [id number] 05/30/2016 Document 6371 12:19:00 Registration
--- NOTE | 2018-03-15 16:04 | Emergency Department Report ---
Emergency Room Note Emergency Room Note: Patient is a 27-year-old female history of pre-eclampsia. Patient is 36 weeks . Patient originally presented to the ER for evaluation of chest pain, however blood pressure check was 221/121, given patient's history of preeclampsia, EKG was obtained which was normal. At this time my highest consideration is eclampsia, patient is referred to maternal child for further evaluation NSR, NL intervals, Nl axis, no acute st segment changes
[2018-03-15] MEDS ORDERED: LABETALOL 100mg/20ml INJECTION IVP ONE ×4 (16:16→19:03)
[2018-03-15] MEDS ORDERED: MAGNESIUM SULFATE 6gm PREMIX 6 GM/100 ML BAG IV ONE (16:39)
[2018-03-15] MEDS ORDERED: CITRIC ACID/SODIUM CITRATE 30ml PO PRN (16:39)
[2018-03-15] MEDS ORDERED: LIDOCAINE 1% (10mg/ml) 2mL INJ PF SDV ID PRN (16:39)
[2018-03-15] MEDS ORDERED: CALCIUM GLUCONATE 4.65mEq/10ml INJECTION IV PRN (16:39)
[2018-03-15] MEDS ORDERED: CEFAZOLIN PREMIX (MC ONLY) 2 GM/50 ML BAG IV ONE (16:43)
[2018-03-15] MEDS ORDERED: FAMOTIDINE PB 20 MG/50 ML BAG IV ONE (16:43)
[2018-03-15] MEDS ORDERED: CITRIC ACID/SODIUM CITRATE 30ml PO ONE (16:43)
[2018-03-15] MEDS ORDERED: FentaNYL 250 MCG/5 ML INJECTION ONE (17:04)
[2018-03-15] MEDS ORDERED: MORPHINE SULFATE PF 5mg/10ml INJ (Duramorph) ONE (17:04)
[2018-03-15] MEDS ORDERED: SALINE FLUSH 10ml SYRINGE ONE (17:06)
[2018-03-15] MEDS ORDERED: EPHEDRINE 50mg/ml INJECTION ONE (17:06)
[2018-03-15] MEDS ORDERED: BUPIVACAINE 0.75%/DEXTROSE 8.5% SPINAL 2 ML AMPULE IJ ONE (17:06)
[2018-03-15] MEDS: CEFAZOLIN 1 G INJECTION IVP ONE ×3 (17:06→23:00)
[2018-03-15] MEDS ORDERED: EPINEPHrine 1mg/ml (1:1000) vial ONE (17:06)
[2018-03-15] MEDS: LR 1,000 ML IV SCH ×3 (17:06→20:43)
[2018-03-15] MEDS ORDERED: NOZIN NASAL SWAB NAS ONE (17:13)
--- NOTE | 2018-03-15 17:17 | Anesthesia Preoperative Report ---
Anesthesia Preoperative Record - Date and Time Date: 03/15/18 Preoperative Diagnosis: CP Proposed Procedure: stat c section NPO Since Date: 03/15/18 NPO Since Time: 12:00 Allergies/Adverse Reactions: Allergies Allergy/AdvReac Type Severity Reaction Status Date / Time No Known Drug Allergies Allergy Unknown Verified 03/15/18 15:43 - Vital Signs Vital Signs: Temperature 98.1 F 03/15/18 15:29 Pulse Rate 92 03/15/18 15:29 Respiratory Rate 16 03/15/18 15:29 Blood Pressure 221/121 H 03/15/18 15:29 Pulse Oximetry 99 03/15/18 15:29 Height and Weight: Height 1.73 m Weight 138 kg - Medications Inpatient Medications: Current Medications Calcium Gluconate (Calcium Gluconate 4.65 Meq/10 Ml (1 Gram)) 4.65 meq IV O PRN Citric Acid/Sodium Citrate (Oracit) 30 ml PO Q2H PRN Magnesium Sulfate (Magnesium Sulfate Drip) 20 gm in 500 mls @ 50 mls/hr IV .Q10H MOJGAN PRN Reason: 2 G/HR Lactated Ringer's (Lactated Ringers) 1,000 mls @ 999 mls/hr IV .Q1H1M MOJGAN Last Admin: 03/15/18 17:06 Dose: 999 mls/hr Isopropyl Alcohol (Nozin Nasal Swab) 1 each ALTAGRACIA O ONE Stop: 03/15/18 17:14 Last Admin: 03/15/18 17:14 Dose: 1 each Lidocaine HCl (Xylocaine-Mpf 1% Vial) 1 mg ID PRN PRN PRN Reason: IV Start Home Medications: Home Medications Medication Instructions Recorded Confirmed Type No known Home medications [No home 08/24/17 08/24/17 History meds] Is Patient on Beta Marvin?: No - Medical History Respiratory: Reports: Asthma Other History: Reports: Now () - Surgical History Reproductive Surgery/Treatment: Reports: Section DENIES: Hysterectomy, Tubal Ligation - Social History Smoking Status: Current every day smoker Packs per day: 1 Pack-years: 14 Substance Use Type: does not use Alcohol Intake Frequency: does not drink - Pertinent Findings Laboratory: CBC and BMP 03/15/18 16:13 03/15/18 16:13 BMP 03/15/18 16:13 Sodium 140 Potassium 4.1 Chloride 110 H Carbon Dioxide 21 L BUN 5.0 L Creatinine 0.7 Glucose 84 Calcium 9.4 Liver Function 03/15/18 Range/Units 16:13 Total Bilirubin 0.70 (0.20-1.30) MG/DL AST 13 L (14-36) U/L ALT 7 (1-35) U/L Alkaline Phosphatase 155 H (38-126) U/L Albumin 3.5 (3.5-5.0) g/dL EKG: Sinus Rhythm - Physical Exam Respiratory Exam: Present: lungs clear Cardiovascular Exam: Present: regular rate and rhythm, no murmur - Airway Assessment Mallampati Score: II TMD: 3 Fingerbreadths Neck Extension: good Teeth: chipped teeth/crowns Overall Assessment: may be difficult mask vent - ASA ASA Score: 3, E - Plan Regional/Trunk Block: Spinal - Discussion Discussion: Discussed risks/options/alternatives of anesthesia and questions answered. Patient consents. Nursing pain assessment noted. Attestation Statement: Prior to the delivery of any anesthetic medication, I examined the patient, developed the plan, obtained the patient's consent and discussed the risk and benefits of the procedure with the patient/guardian. - Additional Information Seen by Anesthesia: Yes
[2018-03-15] MEDS: MAGNESIUM SULFATE DRIP 20 GM/500 ML BAG IV SCH ×2 (17:20→20:39)
[2018-03-15] MEDS ORDERED: OXYTOCIN BOLUS BAG 30 UNIT/500 ML ML IV SCH (17:30)
[2018-03-15] MEDS: OXYTOCIN DRIP 30 UNIT/500 ML ML IV SCH ×2 (18:06→20:10)
[2018-03-15] MEDS ORDERED: MEASLES-MUMPS-RUBELLA VACCINE 0.5ml INJECTION SQ ONE (18:39)
[2018-03-15] MEDS ORDERED: SIMETHICONE 80 MG CHEWABLE TABLET PO PRN (18:39)
[2018-03-15] MEDS ORDERED: CALCIUM CARBONATE Chewable 500mg TABLET PO PRN (18:39)
[2018-03-15] MEDS ORDERED: ACETAMINOPHEN 500 MG TABLET PO PRN (18:39)
[2018-03-15] MEDS ORDERED: ONDANSETRON ODT 4 MG TABLET PO PRN (18:39)
[2018-03-15] MEDS ORDERED: HYDROCORTISONE 2.5% CREAM 30gm RECTALLY PRN (18:39)
[2018-03-15] MEDS ORDERED: DiphenhydrAMINE 25 MG CAPSULE PO PRN (18:39)
[2018-03-15] MEDS ORDERED: NALOXONE 2 MG/2 ML INJECTION PFS IVP PRN (19:02)
[2018-03-15] MEDS: HYDROCODONE/APAP 5mg/325mg TABLET PO PRN (20:39)
[2018-03-15] MEDS: D5LR 1,000 ML IV SCH (20:53)
[2018-03-15] MEDS ORDERED: LABETALOL 100mg/20ml INJECTION IVP PRN (22:34)
[2018-03-15] MEDS: SIMETHICONE 80 MG CHEWABLE TABLET PO SCH (22:53)
[2018-03-15] MEDS ORDERED: CEFAZOLIN 1 G INJECTION IVP ONE (22:57)
[2018-03-16] MEDS: MAGNESIUM SULFATE DRIP 20 GM/500 ML BAG IV SCH ×2 (03:16→13:14)
[2018-03-16] MEDS: D5LR 1,000 ML IV SCH (08:24)
--- NOTE | 2018-03-16 08:24 | OB/GYN Progress Note ---
OB-PP Progress Note - General PPD1 Maternal Group B Strep: Not Done/No Results Maternal Rubella Status: Not Immune - Subjective Date: 03/16/18 Lochia: Minimal Pain: moderate (She hasn't had a pain pill for 12 hours, so she is hurting now.) Voiding: [place] still in place Subjective Comments: Her chest pain from yesterday has resolved. She still has a SINGH, likely from the mag. - Objective Vital Signs: Last Vital Signs Temp 98.1 F 03/16/18 08:00 Pulse 101 H 03/16/18 08:00 Resp 18 03/16/18 08:00 BP 153/96 H 03/16/18 08:00 Pulse Ox 98 03/16/18 08:00 Last PM after delivery she was given an additional dose of labetolol IV and nifedipine PO. Her BPs have mostly been in the mildly elevated range overnight since then. Urine Output: good General: alert and oriented Abdomen: fundus firm, non-tender, soft, non-distended Incision: dressed Extremities: non-tender Laboratory: Laboratory Results - last 24 hr 03/15/18 03/15/18 03/15/18 20:50 20:50 23:48 WBC 13.8 H RBC 3.11 L Hgb 9.5 L D Hct 28.5 L D MCV 91.6 MCH 30.5 MCHC 33.3 RDW Std Deviation 49.0 Plt Count 218 MPV 9.9 Ur Collection Type Urine, void-cc/notcc Urine Color Yellow Urine Clarity Clear Urine pH 7.0 Ur Specific [place] 1.025 Urine Protein Negative Urine Glucose (UA) Negative Urine Ketones 1+ A Urine Occult Blood Negative Urine Nitrate Negative Urine Bilirubin Negative Urine Urobilinogen 0.2 Ur Leukocyte Esterase Negative Urinalysis Comment Microscopic not ind. Ur Random Creatinine 48.0 U Random Total Protein 38.0 H Protein/Creatinin Ratio 0.79 - Assessment (1) S/P repeat low transverse Comment: Routine care. Status: Acute (2) Severe pre-eclampsia, delivered, current hospitalization Comment: Continue mag until 24 hours PP. She may need to continue the Procardia. Status: Acute (3) Gestational diabetes mellitus, currently Comment: FBS 90. Status: Acute
[2018-03-16] MEDS: MetroNIDAZOLE 500 MG TABLET PO SCH ×5 (08:25→21:42)
[2018-03-16] MEDS: HYDROCODONE/APAP 5mg/325mg TABLET PO PRN ×3 (09:00→19:46)
[2018-03-16] MEDS: DOCUSATE CALCIUM 240 MG CAPSULE PO SCH (09:02)
[2018-03-16] MEDS: SIMETHICONE 80 MG CHEWABLE TABLET PO SCH ×3 (09:03→21:42)
--- NOTE | 2018-03-16 14:30 | Operative Note ---
DATE OF DELIVERY 03/15/2018 PREOPERATIVE DIAGNOSES 1. 27-year-old, 3, para 1-1-0-2, at 36 weeks 2 days gestational age. 2. Severe preeclampsia. 3. Previous x 2. 4. Desires permanent sterilization. 5. A1 gestational diabetes. POSTOPERATIVE DIAGNOSES 1. 27-year-old, 3, para 1-1-0-2, at 36 weeks 2 days gestational age. 2. Severe preeclampsia. 3. Previous x 2. 4. Desires permanent sterilization. 5. A1 gestational diabetes. PROCEDURE Repeat low transverse section and tubal ligation via modified Nolan method. SURGEON Dr. Cathie Hoskins TRANSPORT AIDE Dr. Omayra Tillman ANESTHESIA Spinal by Michael Merritt CRNA COMPLICATIONS None. EBL 500 ml FINDINGS Viable female infant, cephalic position, clear fluids, Apgars 8/8, weight 2816 g , name "John." Normal-appearing uterus, tubes and ovaries. INDICATIONS Gwendolyn is a patient of mine who had not been seen in the office for the last 6 weeks. The patient presented to the emergency room with complaints of severe pain under both breasts. She was found to have blood pressures in the 220s/ 100s. Her EKG was normal, so she was sent to [facility] for further evaluation. She continued to have blood pressures in the severe range. IV access was obtained. She received 10, 20 and 40 mg doses of IV labetalol. She was also started on magnesium. Due to the continued severe blood pressures, she was consented for her repeat . She also expressed interest in having her tubes tied, which we had previously discussed at an office visit. She was reminded of the risk of failure and ectopic. DESCRIPTION OF PROCEDURE The patient was taken to the operating room where anesthesia was obtained. She was placed in the dorsal supine position with a leftward tilt and a Irwin catheter was placed. Her pannus was elevated with a Traxi pannus retractor. She was prepared and draped in the normal sterile fashion. A Pfannenstiel skin incision was made through her previous incision and carried down to the fascia. The fascia was incised in the midline and extended laterally with the Ortiz scissors. The fascia was elevated and the underlying rectus muscles were dissected off. The peritoneum was entered with a combination of sharp and blunt dissection. This was extended superiorly and inferiorly with good visualization of the bladder. The bladder blade was inserted. Small filmy adhesions between the bladder and the uterus were taken down sharply and the bladder blade was reinserted. The lower uterine segment was then incised in a transverse fashion layer by layer with a scalpel and bluntly extended. The 's head was round and floating in the pelvis. It was delivered atraumatically. The nose and mouth were suctioned. The cord was clamped and cut. The infant was handed to Dr. Jay who was asked to attend due to the prematurity and severe preeclampsia. The placenta delivered spontaneously. The uterus was exteriorized and cleared of all clots and debris. The uterine incision was closed with running locked O Monocryl. Hemostasis was obtained on the serosal edges with the cautery. The right fallopian tube was identified. An avascular segment was grasped with a Vimal. The segment was ligated with chromic. Each end of the segment was ligated with another chromic. The tube segment was excised with good hemostasis noted. This was all repeated on the patient's left fallopian tube. The uterine incision was inspected again. The uterus was returned to the abdomen. The gutters were cleared of all clots and debris. The uterine incision was inspected one final time. The peritoneum was closed with running 2 -0 Vicryl. Hemostasis was obtained in the rectus muscles with the cautery. The fascia was closed with running 0 Vicryl. Hemostasis was obtained in the subcutaneous tissue with the cautery. Peyton's fascia was reapproximated with running 2-0 chromic. The skin was closed with earl. A Prevena wound vac was placed due to the patient's BMI. The patient tolerated the procedure well. Sponge, sharp and instrument counts were correct. JESSICA
[2018-03-17] MEDS: MAGNESIUM SULFATE DRIP 20 GM/500 ML BAG IV SCH ×3 (02:51→02:52)
[2018-03-17] MEDS: D5LR 1,000 ML IV SCH (02:52)
[2018-03-17] MEDS: SIMETHICONE 80 MG CHEWABLE TABLET PO SCH ×5 (02:52→22:23)
--- NOTE | 2018-03-17 08:21 | OB/GYN Progress Note ---
OB-PP Progress Note - General PPD2 Maternal Group B Strep: Not Done/No Results Maternal Rubella Status: Not Immune - Subjective Date: 03/17/18 Lochia: Minimal Pain: controlled Voiding: voiding Subjective Comments: She's feeling much better since the mag was stopped. Her SINGH is resolved. Her baby was transported to [facility] this AM due to PVCs and bigeminy. - Objective Vital Signs: Last Vital Signs Temp 98.4 F 03/17/18 05:00 Pulse 103 H 03/17/18 05:00 Resp 17 03/17/18 05:00 BP 166/85 H 03/17/18 05:00 Pulse Ox 98 03/17/18 05:00 Her BPs are much improved with the Procardia 60 mg. Her BP is in the severe range again since she is due for her next dose. Urine Output: good General: alert and oriented Abdomen: fundus firm, non-tender Incision: dressed Extremities: non-tender Laboratory: Laboratory Results - last 24 hr 03/16/18 03/16/18 03/16/18 08:20 12:15 12:15 WBC 10.4 RBC 3.42 L Hgb 10.4 L Hct 31.3 L MCV 91.5 MCH 30.4 MCHC 33.2 RDW Std Deviation 50.3 H Plt Count 226 MPV 9.8 Turbidity < 20 Sodium 140 Potassium 3.9 Chloride 107 Carbon Dioxide 24 Anion Gap 9 BUN 3.0 L Creatinine 0.7 GFR Calculation 101 BUN/Creatinine Ratio 4 L Glucose 123 H Glucometer 90 Calculated Osmolality 267 Calcium 7.7 L D Total Bilirubin 0.40 Icterus Index < 2 AST 13 L ALT 8 Alkaline Phosphatase 127 H Total Protein 5.7 L Albumin 3.0 L Globulin 2.7 Albumin/Globulin Ratio 1.1 Specimen Hemolysis < 15 - Assessment (1) S/P repeat low transverse Comment: Routine care. Status: Acute (2) Severe pre-eclampsia, delivered, current hospitalization Comment: Continue the Procardia. Status: Acute (3) Gestational diabetes mellitus, currently Status: Acute - Plan Since her baby was transported, she would like to be dismissed. We will watch her and her BPs for the day and possibly dismiss this evening.
[2018-03-17] MEDS: DOCUSATE CALCIUM 240 MG CAPSULE PO SCH (09:45)
[2018-03-17] MEDS: HYDROCODONE/APAP 5mg/325mg TABLET PO PRN ×2 (09:46→22:24)
[2018-03-17] MEDS: MetroNIDAZOLE 500 MG TABLET PO SCH ×3 (11:51→22:21)
--- NOTE | 2018-03-17 15:41 | OB/GYN Progress Note ---
OB-PP Progress Note - General Maternal Group B Strep: Not Done/No Results Maternal Rubella Status: Not Immune - Subjective Date: 03/17/18 Lochia: Minimal Pain: controlled Voiding: voiding - Objective Vital Signs: Last Vital Signs Temp 97.6 F 03/17/18 14:58 Pulse 109 H 03/17/18 14:58 Resp 16 03/17/18 14:58 BP 137/75 03/17/18 14:58 Pulse Ox 98 03/17/18 14:58 Urine Output: good General: alert and oriented - Assessment (1) S/P repeat low transverse Comment: Routine care. She is comfortable staying here tonight. Will hopefully DC home tomorrow. Return to my office Mon or Tues to remove wound vac. Status : Acute (2) Severe pre-eclampsia, delivered, current hospitalization Comment: Continue the Procardia. Status: Acute (3) Gestational diabetes mellitus, currently Status: Acute
[2018-03-17 20:05] VITALS: O2SAT 99
[2018-03-18 05:52] VITALS: RESP 18
[2018-03-18] MEDS: SIMETHICONE 80 MG CHEWABLE TABLET PO SCH ×2 (09:00→13:18)
[2018-03-18] MEDS: DOCUSATE CALCIUM 240 MG CAPSULE PO SCH (09:21)
[2018-03-18] MEDS: HYDROCODONE/APAP 5mg/325mg TABLET PO PRN (09:23)
[2018-03-18] MEDS: MetroNIDAZOLE 500 MG TABLET PO SCH (09:26)
--- NOTE | 2018-03-18 11:11 | Progress Note ---
OB PP Progress Note Free Text - Date Date: 03/18/18 - Progress Note Progress Note: incision c/d/i doing well looks well, denies SINGH, minimal swelling baby in nicu at [facility] and doing better BP bouncing all around - some WNL and some elevated - pt tired and worried about baby currently on Procardia 60XL, will add a 30XL for a few days Pt has incision check in 3 days - will recheck pressures at that time. dc instructions reviewed. q&a
[2018-03-18 13:49] VITALS: BP 161/95
[2018-03-18 14:17] VITALS: PULSE 104; TEMP 99.2
== END 2018-03-18 14:44 | disposition home or self-care (01) | DRG 765 ==
LOC: ED 15:29 → MC 15:42 → OBOBS 15:44 → MC 15:45
PROVIDERS: ADMIT Obstetrics & Gynecology; ATTEND Obstetrics & Gynecology